=== PATIENT | male | born 1955 | race Caucasian/White ===

== ENCOUNTER 2021-07-27 12:26 | Inpatient (IN) | payer OTHER, MEDICARE, SELFPAY ==
[~2021-07-27] VITALS: Ht 177.8 cm; Wt 69.9 kg
[2021-07-27 12:26] VITALS: BP_SYST 169
[~2021-07-27 12:26] MED LIST: ACET-2634 PO; ALPR0.5T PO; BUSP5TAB3 PO; CEL20 PO; CITA10TA17 PO; DIPH25TA62 PO; DOXA2TAB PO; IPRA3AMP9 INH; LACT1TAB14 PO; LACT30003 GT; LEVO250T58 PO; LORA10CA PO; MELA3CAP PO; MULT-1117 PO; POLY17PO4 PO; RILU50TA13 PO; SENN8.6T19 PO; VITD2000 PO
--- NOTE | 2021-07-27 12:26 | NUR ---
Placed in room 2 . Placed on ldr nurse, blood pressure machine and pulse oximeter. To gown for exam. Side rails up.
--- NOTE | 2021-07-27 12:30 | NUR ---
Pt bib EMS from home with c/o bleeding from penis, s/p home health catheter insertion. Pt has trach in place, respiratory at bedside to set up the vent. O2 sat 97% on 50% O2. Other v/s stable
--- NOTE | 2021-07-27 13:50 | NUR ---
Pt had large BM, pericare and complete linen change completed. Pt tolerated well.
--- NOTE | 2021-07-27 14:30 | NUR ---
ER Dr. Lopez at bedside examining patient.
--- NOTE | 2021-07-27 15:09 | NUR ---
# 16 FR Mejia catheter with use of sterile technique. Immediate return of 25 cc pale yellow urine with scant blood clots noted. Bedside drainage bag placed below level of bladder. Urine sample collected and sent to lab. Pt tolerated procedure well.
[2021-07-27 15:11] LABS: BASOPHILS # (AUTO) 0.1 K/uL (0.0-0.2); BASOPHILS % (AUTO) 0.9 % (0.0-2.0); EOSINOPHILS # (AUTO) 0.2 K/uL (0.0-0.4); EOSINOPHILS % (AUTO) 1.2 % (0.0-4.0); HEMATOCRIT 33.6 % (36-54); HEMOGLOBIN 11.2 g/dL (14.0-18.0); LYMPHOCYTES # (AUTO) 0.9 K/uL (1.0-5.5); LYMPHOCYTES % (AUTO) 6.3 % (20.5-51.5); MEAN CORPUSCULAR HEMOGLOBIN 30 pg (27-31); MEAN CORPUSCULAR HGB CONC 33 % (32-36); MEAN CORPUSCULAR VOLUME 91 fL (79.0-98.0); MONOCYTES % (AUTO) 6.9 % (1.7-9.3); NEUTROPHILS # (AUTO) 11.7 K/uL (1.8-7.7); NEUTROPHILS % (AUTO) 84.7 % (40.0-70.0); PLATELET COUNT (AUTO) 267 K/uL (130-430); RED BLOOD CELL COUNT(AUTO) 3.71 MIL/uL (4.2-6.2); RED CELL DISTRIBUTION WIDTH 15.6 % (9.0-15.0); WHITE BLOOD COUNT (AUTO) 13.9 K/uL (4.8-10.8)
[2021-07-27 15:33] LABS: CALCIUM 9.7 mg/dL (8.4-11.0); CREATININE 0.84 mg/dL (0.55-1.30); POTASSIUM 4.6 mmol/L (3.5-5.1)
[2021-07-27 15:45] LABS: ALBUMIN 3.1 g/dL (3.4-4.8); TOTAL BILIRUBIN 0.5 mg/dL (0.0-1.0)
[2021-07-27 15:55] LABS: BILIRUBIN,URINE NEGATIVE (NEGATIVE); BLOOD, URINE 3+ (NEGATIVE); CLARITY/URINE CLEAR (CLEAR); COLOR,URINE YELLOW (YELLOW); GLUCOSE,URINE NEGATIVE (NEGATIVE); KETONES,URINE NEGATIVE (NEGATIVE); LEUKOCYTE ESTERASE ,URINE NEGATIVE (NEGATIVE); NITRITE, URINE NEGATIVE (NEGATIVE); PROTEIN URINE NEGATIVE (NEGATIVE); UROBILINOGEN,URINE 0.2 (0.2-1.0)
--- NOTE | 2021-07-27 16:00 | NUR ---
D/C orders received, pt will be going back home. Ambulance transportation set up, ETA 20:30. [facility] is at home and will be there to accept patient.
[2021-07-27 16:14] LABS: BACTERIA,URINE FEW /HPF (None Seen); CALCIUM OXALATE CRYSTALS,UR None Seen /HPF (None Seen); CALCIUM PHOSPHATE CRYSTALS,UR None Seen /HPF (None Seen); COARSE GRANULAR CASTS,URINE None Seen /LPF (None Seen); FINE GRANULAR CASTS,URINE None Seen /LPF (None Seen); HYALINE CASTS, URINE None Seen /LPF (None Seen); MUCUS,URINE None Seen /LPF (None Seen); OTHER CASTS, URINE None Seen /LPF (None Seen); OTHER CRYSTALS,URINE None Seen /HPF (None Seen); RBC,URINE 20-50 /HPF (0-3); TRICHOMONAS,URINE None Seen /HPF (None Seen); TRIPLE PHOSPHATE CRYSTAL,UR None Seen /HPF (None Seen); URIC ACID CRYSTALS,URINE None Seen /HPF (None Seen); URINE AMORPHOUS PHOSPHATES None Seen /HPF (None Seen); URINE AMORPHOUS URATE None Seen /HPF (None Seen); WAXY CASTS,URINE None Seen /LPF (None Seen); WBC,URINE 0-3 /HPF (0-3); YEAST,URINE None Seen /HPF (None Seen)
[2021-07-27 16:34] LABS: PROTHROMBIN TIME 10.9 SECS (9.5-12.5)
--- NOTE | 2021-07-27 17:30 | NUR ---
Pt repositioned to right side, HOB elevated above 30 degrees, pillows placed between legs and behind back.
--- NOTE | 2021-07-27 19:14 | NUR ---
Care of patient endorsed to RAFAELA James. Pt currently resting in bed, awaiting transport home.
--- NOTE | 2021-07-27 21:45 | NUR ---
Pt desated to 89%, Resp called, keyana changed to a hosp bed. Pt called, pt is DNR, paper are here at hospital in med rec. MD at bedside, pending re-assessment.
[2021-07-27] MEDS ORDERED: LORazepam 2 MG/ML VIAL IVP ONE (22:00)
--- NOTE | 2021-07-27 22:02 | NUR ---
PORTABLE XRAY DONE AT BEDSIDE.
--- NOTE | 2021-07-27 22:10 | NUR ---
PT CHANGED FROM GURNEY TO HOSP BED. TOLERATED WELL, AT PRESENT NO RESP DISTRESS NOTED, PT AND REQUESTING ATIVAN OR XANAX, HE FEELS AGITATED. AT BEDSIDE.
[2021-07-27 22:22] LABS: BASOPHILS # (AUTO) 0.1 K/uL (0.0-0.2); BASOPHILS % (AUTO) 0.7 % (0.0-2.0); EOSINOPHILS # (AUTO) 0.2 K/uL (0.0-0.4); EOSINOPHILS % (AUTO) 1.5 % (0.0-4.0); HEMATOCRIT 33.8 % (36-54); HEMOGLOBIN 11.2 g/dL (14.0-18.0); LYMPHOCYTES # (AUTO) 0.9 K/uL (1.0-5.5); LYMPHOCYTES % (AUTO) 5.9 % (20.5-51.5); MEAN CORPUSCULAR HEMOGLOBIN 30 pg (27-31); MEAN CORPUSCULAR HGB CONC 33 % (32-36); MEAN CORPUSCULAR VOLUME 91 fL (79.0-98.0); MONOCYTES # (AUTO) 1.2 K/uL (0.0-1.0); MONOCYTES % (AUTO) 7.8 % (1.7-9.3); NEUTROPHILS # (AUTO) 13.2 K/uL (1.8-7.7); NEUTROPHILS % (AUTO) 84.1 % (40.0-70.0); PLATELET COUNT (AUTO) 283 K/uL (130-430); RED BLOOD CELL COUNT(AUTO) 3.73 MIL/uL (4.2-6.2); RED CELL DISTRIBUTION WIDTH 15.7 % (9.0-15.0); WHITE BLOOD COUNT (AUTO) 15.7 K/uL (4.8-10.8)
[2021-07-27 22:45] LABS: CALCIUM 10.2 mg/dL (8.4-11.0); CREATININE 0.76 mg/dL (0.55-1.30); POTASSIUM 4.1 mmol/L (3.5-5.1)
[2021-07-27 22:51] LABS: ALBUMIN 3.2 g/dL (3.4-4.8); TOTAL BILIRUBIN 0.7 mg/dL (0.0-1.0)
[2021-07-27] MEDS ORDERED: PIPERACILLIN/TAZO 3.375 GM in NS 50 ML IV ONE (23:45)
[2021-07-28] MEDS: D5/0.45 NS 1,000 ML IV SCH ×2 (00:15→20:10)
--- NOTE | 2021-07-28 00:25 | NUR ---
RECEIVED ADMIT ORDERS. JEFRY A BED FROM [facility].
[2021-07-28] MEDS ORDERED: PIPERACILLIN/TAZOBACTAM 3.375 GM/VIAL (ZOSYN) IV ONE (00:43)
[2021-07-28] MEDS ORDERED: ACETAMINOPHEN 650 MG/20.3 ML UDC ONE (02:26)
--- NOTE | 2021-07-28 03:15 | NUR ---
Patient will be admitted to care of Phillip RUSSO. Admitted to Tele unit. Will go to room 107A on Vent settings, transported by nurse and Resp therapists x2 for safety. Belongings list completed. Complete and up to date summary report printed. SBAR report to be given at bedside with opportunity for questions. Pt on trache to Vent at 45% O2. Urine output 1,200 ml. tylenol 650mg given PO for h/a 10. took pt's belongings and Home vent (bi-Pap) from ED (personal belongings bag given. VS WNL- T 98.0, p 88, RR 32, BP 102/66 PO2 96%. No Resp distress noted.
--- NOTE | 2021-07-28 03:20 | NUR ---
ADMISSION NOTE Received patient from ER via hospital bed. Patient admitted with diagnosis of Venilator Assisted Pneumonia. Patient is awake, alert, oriented X 3. Patient oriented to hospital room, call light, toileting, pain management and safety-teach back done. Patient informed that senior copywriter will be primary nurse and that their room number is 107A. Accompanied by . Call light within reach.
[2021-07-28] MEDS ORDERED: ACETAMINOPHEN 650 MG/20.3 ML UDC PO PRN (03:45)
[2021-07-28 03:59] VITALS: BP_SYST 113
--- NOTE | 2021-07-28 04:01 | NUR ---
The SARS Antigen AIMEE does not differentiate between SARS-CoV and SARS-CoV-2- results are negative.
[2021-07-28] MEDS: IPRATROPIUM/ALBUTEROL SULFATE 3 ML AMPUL.NEB (DUONEB) INH SCH ×3 (07:18→20:08)
--- NOTE | 2021-07-28 07:26 | NUR ---
Closing note Resting quietly, easily aroused. Remains on mechanical ventilator tolerating settings well. No c/o pain or discomfort. Mejia catheter draining clear yellow urine. All needs attended to.
[2021-07-28 08:32] VITALS: BP_SYST 121
[2021-07-28] MEDS ORDERED: RILU50TA13 PO (09:59)
--- NOTE | 2021-07-28 09:59 | NUR ---
Nutrition Update Eduardo Scale 13 noted. Pt admitted for ventilator-associated pneumonia. Diet: N/A BMI: 21 kg/m2 RD to follow per nutrition care standards.
[2021-07-28] MEDS ORDERED: CEL20 PO (10:04)
[2021-07-28] MEDS ORDERED: busPIRone HCL 5 MG TABLET PO ONE (10:15)
[2021-07-28] MEDS ORDERED: CHOLECALCIFEROL (VITAMIN D3) 2,000 UNIT TABLET PO ONE (10:15)
[2021-07-28] MEDS ORDERED: IPRATROPIUM/ALBUTEROL SULFATE 3 ML AMPUL.NEB (DUONEB) INH SCH (10:15)
[2021-07-28] MEDS ORDERED: CITALOPRAM HYDROBROMIDE 20 MG TABLET PO ONE (10:15)
[2021-07-28 10:21] VITALS: BP_SYST 121
[2021-07-28 11:27] VITALS: BP_SYST 103
--- NOTE | 2021-07-28 12:30 | NUR ---
hygiene pt stable a/ox3. non verbal . on vent tolerating well. pt had bmx1. pt cleaned and repositioned.ivf infusing well. no s/s of infiltartion noted. safety and fall precautions mainatined. hob elevated . g tube bolus feeding given as ordered.no residual noted. fishman cath draining yellow color urine. mild bleeding noted on insertion site. dr evans aware. at bed side. not in acute distress. oral and tracheal suctione done. not in res distress. will conintue to monitor
[2021-07-28] MEDS: PIPERACILLIN/TAZO 3.375/DEX-IS 50 ML IV SCH ×2 (13:00→17:15)
[2021-07-28] MEDS: AZITHROMYCIN 500 MG in NS 250 ML IV SCH (14:30)
[2021-07-28] MEDS: busPIRone HCL 5 MG TABLET PO SCH ×2 (14:30→22:02)
[2021-07-28 15:34] VITALS: BP_SYST 130
--- NOTE | 2021-07-28 18:48 | NUR ---
closing notes pt stable a/ox3. non verbal . on vent tolerating well..ivf infusing well. no s/s of infiltartion noted. safety and fall precautions mainatined. hob elevated . g tube bolus feeding given as ordered.no residual noted. fishman cath draining yellow color urine. at bed side. pt continue on vent. tolerating well.not in acute distress. oral and tracheal suction done. not in res distress. needs attended throughout the shift.
[2021-07-28 20:00] VITALS: BP_SYST 101
[2021-07-28] MEDS: ACETAMINOPHEN 500 MG TABLET PO PRN (20:10)
[2021-07-28] MEDS: ALPRAZolam 0.25 MG TABLET PO SCH (20:11)
[2021-07-28] MEDS: DOXAZOSIN MESYLATE 2 MG TABLET PO SCH (21:00)
[2021-07-28] MEDS: SENNOSIDES 8.6 MG TABLET PO SCH (21:00)
[2021-07-28] MEDS ORDERED: RILUZOLE 50MG TABLET PO SCH (21:00)
[2021-07-28] MEDS: DIPHENHYDRAMINE HCL 25 MG CAPSULE PO SCH (22:02)
[2021-07-29] MEDS: PIPERACILLIN/TAZO 3.375/DEX-IS 50 ML IV SCH ×4 (00:52→16:38)
[2021-07-29 02:06] VITALS: BP_SYST 108
[2021-07-29] MEDS: D5/0.45 NS 1,000 ML IV SCH ×2 (04:51→20:58)
[2021-07-29 06:41] LABS: ALBUMIN 2.7 g/dL (3.4-4.8); CALCIUM 9.6 mg/dL (8.4-11.0); CREATININE 0.67 mg/dL (0.55-1.30); POTASSIUM 4.1 mmol/L (3.5-5.1); TOTAL BILIRUBIN 0.4 mg/dL (0.0-1.0)
[2021-07-29] MEDS: IPRATROPIUM/ALBUTEROL SULFATE 3 ML AMPUL.NEB (DUONEB) INH SCH ×2 (07:45→19:30)
[2021-07-29 07:57] LABS: BASOPHILS # (AUTO) 0.1 K/uL (0.0-0.2); BASOPHILS % (AUTO) 0.8 % (0.0-2.0); EOSINOPHILS # (AUTO) 0.4 K/uL (0.0-0.4); EOSINOPHILS % (AUTO) 3.4 % (0.0-4.0); HEMATOCRIT 28.9 % (36-54); HEMOGLOBIN 9.3 g/dL (14.0-18.0); LYMPHOCYTES # (AUTO) 0.8 K/uL (1.0-5.5); LYMPHOCYTES % (AUTO) 6.4 % (20.5-51.5); MEAN CORPUSCULAR HEMOGLOBIN 30 pg (27-31); MEAN CORPUSCULAR HGB CONC 32 % (32-36); MEAN CORPUSCULAR VOLUME 92 fL (79.0-98.0); MONOCYTES # (AUTO) 1.4 K/uL (0.0-1.0); MONOCYTES % (AUTO) 11.3 % (1.7-9.3); NEUTROPHILS # (AUTO) 9.4 K/uL (1.8-7.7); NEUTROPHILS % (AUTO) 78.1 % (40.0-70.0); PLATELET COUNT (AUTO) 234 K/uL (130-430); RED BLOOD CELL COUNT(AUTO) 3.13 MIL/uL (4.2-6.2); RED CELL DISTRIBUTION WIDTH 15.7 % (9.0-15.0); WHITE BLOOD COUNT (AUTO) 12.1 K/uL (4.8-10.8)
--- NOTE | 2021-07-29 08:00 | NUR ---
A/OX4. ON TRACH VENT. WITH GOOD SATURATION. G TUBE CLAMPED. DRESSING CLEAN AND DRY. MINIMAL RESIDUAL NOTED. CONTRACT UPPER AND LOWER EXTREMITIES NOTED. MAZARIEGOS IN PLACE,CLEAR YELLOW.CALL LIGHT= IN PLACE, BED LOCKED AT LOWEST POSITION. WILL CONTINUE TO MONITOR.
[2021-07-29] MEDS: MULTIVITAMINS TAB 1 TABLET PO SCH (08:07)
[2021-07-29] MEDS: LORATADINE 10 MG TABLET PO SCH (08:07)
[2021-07-29] MEDS: CITALOPRAM HYDROBROMIDE 20 MG TABLET PO SCH (08:07)
[2021-07-29] MEDS: CHOLECALCIFEROL (VITAMIN D3) 2,000 UNIT TABLET PO SCH (08:07)
[2021-07-29] MEDS: busPIRone HCL 5 MG TABLET PO SCH ×3 (08:07→20:58)
[2021-07-29] MEDS: DOXAZOSIN MESYLATE 2 MG TABLET PO SCH ×3 (08:18→21:11)
[2021-07-29] MEDS: POLYETHYLENE GLYCOL 3350, 17 GM/ POWD.PACK PO SCH (08:19)
[2021-07-29] MEDS: SENNOSIDES 8.6 MG TABLET PO SCH ×2 (08:19→20:53)
[2021-07-29] MEDS: ALPRAZolam 0.25 MG TABLET PO PRN (10:11)
[2021-07-29 11:29] VITALS: BP_SYST 112
[2021-07-29] MEDS: AZITHROMYCIN 500 MG in NS 250 ML IV SCH (13:18)
--- NOTE | 2021-07-29 14:24 | NUR ---
WOUND EVALUATION: Wound Consult received from Dr. Rice. Thank you, Dr. Rice, for the consult. Patient received in a [facility] bed with an Isoflex NATAN mattress, awake, alert, and oriented. Patient is unable to turn in bed with. Eduardo Score is a 12. Past Medical History: Chronic Respiratory Failure, G-tube feeding, chronic constipation, ALS, CPAP/BiPAP use at home. Recent Labs: WBC 12.1, RBC 3.13, hemoglobin 9.3, hematocrit 28.9, BUN 27, creatinine 0.67, GFR 126, glucose 116, albumin 2.7, PTT 24.7, D-dimer 1470. Microbiology: Blood culture results x2 in progress. Endotracheal sputum culture results in progress. Intrinsic factors that delay wound healing: Chronic Respiratory Failure, ALS, Hypoalbuminemia. Extrinsic factors that delay wound healing: Decreased mobility. Wound Assessment: 1. Left Buttock: Stage II pressure ulcer, present on admission. Site has IAD with MASD and erythema. Brown scab present superior to wound, black scab present inferior to wound. Surrounding tissue has dry flaky skin. Site measures 3.3 cm x 3.0 cm. 2. Right Buttock: IAD with MASD. Site has erythema with multiple small open areas with red tissue. Surrounding tissue has dry flaky skin. Recommend: Cleanse involved areas with mild soap and water. Pat dry. Apply Hydraguard barrier cream to involved areas. Apply hydrogel to open area and wound 1. Cover with Sacral foam dressing. Perform site care twice daily, and as needed for dressing soiling or dislodgment. 3. Intergluteal Cleft: Scar tissue, present on admission. No odor, no drainage. Recommend: Cleanse site with normal saline. Apply moisture barrier cream to site. Cover with same Sacral foam dressing used for sites 1 and 2. Perform wound care daily, and as needed for dressing soiling or dislodgement. 4. Left Heel: Blanchable redness. 5. Right Heel: Blanchable redness. Recommend: Elevate, offload and float bilateral heels with one pillow lengthwise under each extremity at all times. Also recommend: Encourage and assist patient with repositioning side to side only every 2 hours with pillow support and off-load pressure areas with pillows for pressure re-distribution. Offload, elevate and float bilateral heels with one pillow lengthwise under each extremity at all times. Perform skin care and monitor skin integrity Q shift. Use moisture barrier cream on buttocks and other moisture susceptible areas QID and as needed for soiling. Initiate low air-loss therapy.
--- NOTE | 2021-07-29 14:30 | NUR ---
DR. RICE IS AT BEDSIDE ASSESSING PATIENT. PROCEDURE IS PERFORMED TO ADJUST TRACHEOSTOMY. PATIENT TOLERATED WITHOUT DISTRESS.
--- NOTE | 2021-07-29 14:38 | NUR ---
CONSULTATION: REASON FOR CONSULT: TRACHEOSTOMY CONSULTING PHYSICIAN: ELADIA RICE ORDERED BY: VERENICE RICE IS ALREADY AWARE AND SEEN THE PATIENT
[2021-07-29 15:41] VITALS: BP_SYST 98
[2021-07-29] MEDS ORDERED: VANCOMYCIN HCL 1 GM/NS PREMIX 250 ML IV ONE ×2 (19:00→21:00)
[2021-07-29 19:30] VITALS: BP_SYST 102
--- NOTE | 2021-07-29 19:40 | NUR ---
Pt report received. Pt AAOx4, Trach to Vent with settings: A/C, 18, 500, 40%, 5. Contractures noted to BUE. PICC to NUBIA secure with D5 1/2 NS at 50 mL/hr. G-tube patent with no residual noted. Dsg clean, dry, and intact to site. F/C draining yellow urine. HOB elevated,bed in lowest position, call light in reach, SR up x 2. Pt's at bedside.
[2021-07-29] MEDS: ALPRAZolam 0.25 MG TABLET PO SCH (20:53)
[2021-07-29] MEDS: DIPHENHYDRAMINE HCL 25 MG CAPSULE PO SCH (20:53)
[2021-07-29] MEDS: ACETAMINOPHEN 500 MG TABLET PO PRN (20:57)
[2021-07-29 21:20] VITALS: BP_SYST 106
[2021-07-29 23:40] VITALS: BP_SYST 92
[2021-07-30] VITALS (10 sets, daily range): BP systolic 92–125
[2021-07-30] MEDS: PIPERACILLIN/TAZO 3.375/DEX-IS 50 ML IV SCH ×4 (00:06→17:14)
[2021-07-30] MEDS ORDERED: VANCOMYCIN HCL 1000 MG/VIAL IV ONE (01:03)
[2021-07-30] MEDS: IPRATROPIUM/ALBUTEROL SULFATE 3 ML AMPUL.NEB (DUONEB) INH SCH ×4 (01:35→19:53)
--- NOTE | 2021-07-30 02:15 | NUR ---
Pt had a large brown and watery BM. Pt cleaned, clean gown and linens applied. Pt tolerated well and placed in position of comfort. VSS, NAD.
--- NOTE | 2021-07-30 06:00 | NUR ---
Pt's states that she feeds pt q 2 hours via GT per gravity with 250 mL of Nutren 1.5.
--- NOTE | 2021-07-30 07:30 | NUR ---
Pt report given to oncoming RN. Pt AAOx4, No changes to vent settings. D5 1/2 NS continues to infuse at 50 mL/hr to NUBIA PICC. G-F/C draining yellow urine. HOB elevated,bed in lowest position, call light in reach, SR up x 2. Pt's at bedside.
[2021-07-30 07:40] LABS: BASOPHILS # (AUTO) 0.1 K/uL (0.0-0.2); BASOPHILS % (AUTO) 0.7 % (0.0-2.0); EOSINOPHILS # (AUTO) 0.4 K/uL (0.0-0.4); EOSINOPHILS % (AUTO) 3.4 % (0.0-4.0); HEMATOCRIT 29.5 % (36-54); HEMOGLOBIN 9.8 g/dL (14.0-18.0); LYMPHOCYTES # (AUTO) 0.8 K/uL (1.0-5.5); LYMPHOCYTES % (AUTO) 6.8 % (20.5-51.5); MEAN CORPUSCULAR HEMOGLOBIN 30 pg (27-31); MEAN CORPUSCULAR HGB CONC 33 % (32-36); MEAN CORPUSCULAR VOLUME 92 fL (79.0-98.0); MONOCYTES # (AUTO) 1.1 K/uL (0.0-1.0); MONOCYTES % (AUTO) 9.2 % (1.7-9.3); NEUTROPHILS # (AUTO) 9.3 K/uL (1.8-7.7); NEUTROPHILS % (AUTO) 79.9 % (40.0-70.0); PLATELET COUNT (AUTO) 220 K/uL (130-430); RED BLOOD CELL COUNT(AUTO) 3.21 MIL/uL (4.2-6.2); RED CELL DISTRIBUTION WIDTH 15.4 % (9.0-15.0); WHITE BLOOD COUNT (AUTO) 11.6 K/uL (4.8-10.8)
[2021-07-30 08:59] LABS: CALCIUM 9.7 mg/dL (8.4-11.0); CREATININE 0.67 mg/dL (0.55-1.30); POTASSIUM 3.7 mmol/L (3.5-5.1)
[2021-07-30] MEDS: LORATADINE 10 MG TABLET PO SCH (10:11)
[2021-07-30] MEDS: CHOLECALCIFEROL (VITAMIN D3) 2,000 UNIT TABLET PO SCH (10:11)
[2021-07-30] MEDS: busPIRone HCL 5 MG TABLET PO SCH ×3 (10:12→20:21)
[2021-07-30] MEDS: CITALOPRAM HYDROBROMIDE 20 MG TABLET PO SCH (10:12)
[2021-07-30] MEDS: MULTIVITAMINS TAB 1 TABLET PO SCH (10:12)
[2021-07-30] MEDS: SENNOSIDES 8.6 MG TABLET PO SCH ×2 (10:12→20:21)
[2021-07-30] MEDS: POLYETHYLENE GLYCOL 3350, 17 GM/ POWD.PACK PO SCH (10:12)
[2021-07-30] MEDS: VANCOMYCIN HCL 1 GM/NS PREMIX 250 ML IV SCH ×2 (10:19→17:13)
[2021-07-30] MEDS: DOXAZOSIN MESYLATE 2 MG TABLET PO SCH ×2 (10:19→20:21)
[2021-07-30] MEDS ORDERED: LOPERAMIDE HCL 2 MG CAPSULE GT ONE (11:30)
--- NOTE | 2021-07-30 13:44 | NUR ---
Pt's family members at bedside. stable condition. NAD
--- NOTE | 2021-07-30 15:05 | NUR ---
Dietitian Recommendations * Recommend continuing Nutren 1.5 bolus feeds 6x/day w/ 60 ml water flush before and after bolus feeds via GT Provides: 2250 kcal/day, 101 gm protein, and 1011 ml free water/day Meets: 92% of upper end of estimated caloric needs and 96% of lower end of estimated protein needs * Consider addition of Hood BID and Prosource daily to home TF regimen (provides an additional 220 kcal/day, 20 gm protein/day) LP, RD Please refer to Nutrition Assessment for details. Addendum: 07/30/21 at [address] Amended: Links added.
--- NOTE | 2021-07-30 19:15 | NUR ---
Received bedside report for rn. pt in bed resting. rr even and unlabored. pt denies need for suction. family at bedside. Pt denies pain at this time. call light within reach. bed locked in lowest position. bed alarm on. will continue to monitor.
[2021-07-30] MEDS: ALPRAZolam 0.25 MG TABLET PO SCH (20:20)
[2021-07-30] MEDS: DIPHENHYDRAMINE HCL 25 MG CAPSULE PO SCH (20:23)
--- NOTE | 2021-07-30 21:05 | NUR ---
Pt had loose bm. optifoam on coccyx changed. pt denies pain at this time. call light within reach. will continue to monitor
[2021-07-30] MEDS: D5/0.45 NS 1,000 ML IV SCH (22:25)
[2021-07-31] MEDS: PIPERACILLIN/TAZO 3.375/DEX-IS 50 ML IV SCH ×4 (00:55→16:58)
[2021-07-31 01:04] VITALS: BP_SYST 94
--- NOTE | 2021-07-31 02:00 | NUR ---
Pt in bed asleep with eyes closed. rr even and unlabored. iv fluid infusing through kimani picc. call light within reach. bed locked in lowest position. bed alarm on. will continue to monitor.
[2021-07-31] MEDS: VANCOMYCIN HCL 1 GM/NS PREMIX 250 ML IV SCH ×3 (02:45→10:00)
--- NOTE | 2021-07-31 07:22 | NUR ---
endorsed care to oncoming nurse
[2021-07-31 08:00] VITALS: BP_SYST 115
[2021-07-31 08:20] VITALS: BP_SYST 99
[2021-07-31] MEDS: CHOLECALCIFEROL (VITAMIN D3) 2,000 UNIT TABLET PO SCH (08:49)
[2021-07-31] MEDS: DOXAZOSIN MESYLATE 2 MG TABLET PO SCH ×2 (08:49→20:29)
[2021-07-31] MEDS: busPIRone HCL 5 MG TABLET PO SCH ×3 (08:50→20:11)
[2021-07-31] MEDS: CITALOPRAM HYDROBROMIDE 20 MG TABLET PO SCH (08:50)
[2021-07-31] MEDS: POLYETHYLENE GLYCOL 3350, 17 GM/ POWD.PACK PO SCH (08:50)
[2021-07-31] MEDS: SENNOSIDES 8.6 MG TABLET PO SCH (08:50)
[2021-07-31] MEDS: LORATADINE 10 MG TABLET PO SCH (08:50)
[2021-07-31] MEDS: MULTIVITAMINS TAB 1 TABLET PO SCH (08:50)
[2021-07-31] MEDS: IPRATROPIUM/ALBUTEROL SULFATE 3 ML AMPUL.NEB (DUONEB) INH SCH ×4 (08:59→19:57)
--- NOTE | 2021-07-31 10:34 | NUR ---
CONSULT ID SEPSIS DR TOLEDO [phone] S/W SADLER EXCHANGE
--- NOTE | 2021-07-31 10:35 | NUR ---
PAGED PAGED ASHLEY BARDALES AT [phone] SPOKE WITH BROOKS.
--- NOTE | 2021-07-31 10:49 | NUR ---
alert, oriented, appeared comfortable. Per request, patient needs IMMODIUM, given. vanco trough drawn at the time Vanco ready to infused, held it. Vanco trough result now 28, double checked with the farmacist today, VANCO HELD UNTIL DOSAGE READJUSTED. syd disla held , also
[2021-07-31] MEDS ORDERED: LOPERAMIDE HCL 2 MG CAPSULE GT ONE (11:15)
[2021-07-31] MEDS ORDERED: LACTOBACILLUS RHAMNOSUS GG 1 CAP CAPSULE PO ONE (12:00)
[2021-07-31] MEDS: D5/0.45 NS 1,000 ML IV SCH (16:57)
[2021-07-31 18:04] VITALS: BP_SYST 144
[2021-07-31 19:00] VITALS: BP_SYST 118
[2021-07-31] MEDS: DIPHENHYDRAMINE HCL 25 MG CAPSULE PO SCH (20:10)
[2021-07-31] MEDS: ALPRAZolam 0.25 MG TABLET PO SCH (20:10)
[2021-07-31] MEDS: LACTOBACILLUS RHAMNOSUS GG 1 CAP CAPSULE PO SCH (20:11)
[2021-07-31] MEDS: ACETAMINOPHEN 500 MG TABLET PO PRN (20:28)
[2021-08-01 00:05] VITALS: BP_SYST 94
[2021-08-01] MEDS: PIPERACILLIN/TAZO 3.375/DEX-IS 50 ML IV SCH ×2 (00:08→06:22)
[2021-08-01] MEDS: IPRATROPIUM/ALBUTEROL SULFATE 3 ML AMPUL.NEB (DUONEB) INH SCH ×5 (03:27→19:57)
[2021-08-01 08:00] VITALS: BP_SYST 112
[2021-08-01] MEDS: busPIRone HCL 5 MG TABLET PO SCH ×3 (09:00→21:19)
[2021-08-01] MEDS: LACTOBACILLUS RHAMNOSUS GG 1 CAP CAPSULE PO SCH ×2 (09:01→21:19)
[2021-08-01] MEDS: CHOLECALCIFEROL (VITAMIN D3) 2,000 UNIT TABLET PO SCH (09:01)
[2021-08-01] MEDS: MULTIVITAMINS TAB 1 TABLET PO SCH (09:01)
[2021-08-01] MEDS: CITALOPRAM HYDROBROMIDE 20 MG TABLET PO SCH (09:02)
[2021-08-01] MEDS: DOXAZOSIN MESYLATE 2 MG TABLET PO SCH ×2 (09:02→21:00)
[2021-08-01] MEDS: LORATADINE 10 MG TABLET PO SCH (09:03)
[2021-08-01 11:16] LABS: BASOPHILS # (AUTO) 0.1 K/uL (0.0-0.2); EOSINOPHILS # (AUTO) 0.4 K/uL (0.0-0.4); EOSINOPHILS % (AUTO) 3.7 % (0.0-4.0); HEMOGLOBIN 9.6 g/dL (14.0-18.0); LYMPHOCYTES # (AUTO) 0.6 K/uL (1.0-5.5); LYMPHOCYTES % (AUTO) 5.6 % (20.5-51.5); MEAN CORPUSCULAR HEMOGLOBIN 30 pg (27-31); MEAN CORPUSCULAR HGB CONC 33 % (32-36); MEAN CORPUSCULAR VOLUME 91 fL (79.0-98.0); MONOCYTES # (AUTO) 0.7 K/uL (0.0-1.0); MONOCYTES % (AUTO) 6.4 % (1.7-9.3); NEUTROPHILS # (AUTO) 9.4 K/uL (1.8-7.7); NEUTROPHILS % (AUTO) 83.3 % (40.0-70.0); PLATELET COUNT (AUTO) 210 K/uL (130-430); RED BLOOD CELL COUNT(AUTO) 3.19 MIL/uL (4.2-6.2); RED CELL DISTRIBUTION WIDTH 15.6 % (9.0-15.0); WHITE BLOOD COUNT (AUTO) 11.3 K/uL (4.8-10.8)
[2021-08-01 11:30] LABS: CALCIUM 9.8 mg/dL (8.4-11.0); CREATININE 0.71 mg/dL (0.55-1.30); POTASSIUM 3.8 mmol/L (3.5-5.1)
[2021-08-01] MEDS: MENTHOL/ZINC OXIDE 113 GM OINT. TP SCH ×2 (11:30→21:20)
[2021-08-01 11:36] VITALS: BP_SYST 109
[2021-08-01] MEDS: VANCOMYCIN HCL 1,000 MG in NS 250 ML IV SCH (11:48)
[2021-08-01] MEDS: D5/0.45 NS 1,000 ML IV SCH (12:51)
[2021-08-01] MEDS: CEFTAZIDIME 1 GM in D5W 50 ML IV SCH ×2 (15:00→21:22)
[2021-08-01 15:33] VITALS: BP_SYST 119
[2021-08-01 19:00] VITALS: BP_SYST 107
--- NOTE | 2021-08-01 19:15 | NUR ---
change of shift.pt.present isolation status;contact.pt.presents trach ventilator:settings;tv;500,fio2%=35%,a/c;22.p:5. @bedside.pt.presents g-tube clamped.pt.receives the administration bolus feed.no pain,nausea.pt.presents iv access location rt.wrist.iv fluids infusing.picc line d/c;tip sent to lab:cx.call light touch pad w/in access of the pt.lt,hand.touch pad tested functioning.
[2021-08-01 20:00] VITALS: BP_SYST 107
--- NOTE | 2021-08-01 20:00 | NUR ---
pt.assessed.v/s assessed values wnl.o2-sat%=98%.no c/o pain,nausea.iv access intact iv fluids infusing.fishman cath intact urine content present.pt.assessed for cleanliness pt.repositioned.call light touch pad placed w/in access of the pt.touch pad tested functioning.
[2021-08-01] MEDS ORDERED: CEFTAZIDIME 2 GM in D5W 100 ML IV SCH (21:00)
--- NOTE | 2021-08-01 21:00 | NUR ---
2100p medications administered via g-tube.g-tube intact flushed w/out resistance.pt.had requested pain medication;pain. tylenol ex-tra strength administered w 2100p medications.
[2021-08-01] MEDS: ALPRAZolam 0.25 MG TABLET PO SCH (21:19)
[2021-08-01] MEDS: DIPHENHYDRAMINE HCL 25 MG CAPSULE PO SCH (21:19)
[2021-08-01] MEDS: ACETAMINOPHEN 500 MG TABLET PO PRN (21:21)
[2021-08-01] MEDS: LOPERAMIDE HCL 2 MG CAPSULE GT PRN (21:28)
--- NOTE | 2021-08-01 22:00 | NUR ---
pt.assessed.o2-sat%=98%.pt.presents quiescent affect;calm,somnolent.per flacc pain mgx pt.absent facial grimaces/body posturing.pt assessed for cleanliness.pt.repositioned.iv access intact iv fluids infusing.fishman cath intact urine content present. call lighttouch pad w/in access of the pt.tested functioning.
--- NOTE | 2021-08-02 | NUR ---
pt.assessed.v/s assessed values wnl no c/o pain,nausea.iv access intact iv fluids infusing.i have administered vancomycin midnight dose.fishman cath intact urine content present.pt.assessed for cleanliness.pt.repositioned.no c/o pain,nausea.call light touch pad placed w/in access of the pt.touch pad tested functioning.
[2021-08-02 00:27] VITALS: BP_SYST 99
[2021-08-02] MEDS: VANCOMYCIN HCL 1,000 MG in NS 250 ML IV SCH ×3 (00:37→23:45)
--- NOTE | 2021-08-02 02:00 | NUR ---
pt.assessed.o2-sat%=98%.iv access intact iv fluids infusing.fishman cath intact urine content present.pt.assessed for cleanliness.pt.repositioned.patrick light;touch pad placed w/in access of the pt.lt.hand.touch pad tested functioning.
--- NOTE | 2021-08-02 04:00 | NUR ---
pt.assessed.pt.presents quiescent affect;calm,somnolent.iv access intact iv fluids infusing.g-tube intact;clamped.fishman cath intact urine content present.02-sat%=98%.call light touch pad w/in access of the pt.lt.hand tested functioning.
[2021-08-02] MEDS: CEFTAZIDIME 1 GM in D5W 50 ML IV SCH ×3 (05:09→21:10)
--- NOTE | 2021-08-02 06:22 | NUR ---
pt.assessed.v/s wnl. no c/o pain,nausea pt.repositioned.iv access intact iv fluids infusing.i have administered fortaz abx ivpb 0600a dose.fishman cath intact urine content present.call light;touch pad w/in access of the pt.lt.hand tested functioning.
[2021-08-02 07:06] LABS: BASOPHILS # (AUTO) 0.1 K/uL (0.0-0.2); EOSINOPHILS # (AUTO) 0.5 K/uL (0.0-0.4); EOSINOPHILS % (AUTO) 4.9 % (0.0-4.0); HEMATOCRIT 28.9 % (36-54); HEMOGLOBIN 9.5 g/dL (14.0-18.0); LYMPHOCYTES # (AUTO) 0.6 K/uL (1.0-5.5); LYMPHOCYTES % (AUTO) 6.2 % (20.5-51.5); MEAN CORPUSCULAR HEMOGLOBIN 30 pg (27-31); MEAN CORPUSCULAR HGB CONC 33 % (32-36); MEAN CORPUSCULAR VOLUME 92 fL (79.0-98.0); MONOCYTES # (AUTO) 0.9 K/uL (0.0-1.0); MONOCYTES % (AUTO) 8.8 % (1.7-9.3); NEUTROPHILS % (AUTO) 79.1 % (40.0-70.0); PLATELET COUNT (AUTO) 207 K/uL (130-430); RED BLOOD CELL COUNT(AUTO) 3.14 MIL/uL (4.2-6.2); RED CELL DISTRIBUTION WIDTH 15.6 % (9.0-15.0)
[2021-08-02 07:25] LABS: CALCIUM 10.2 mg/dL (8.4-11.0); CREATININE 0.76 mg/dL (0.55-1.30)
[2021-08-02] MEDS: IPRATROPIUM/ALBUTEROL SULFATE 3 ML AMPUL.NEB (DUONEB) INH SCH ×4 (07:48→19:54)
[2021-08-02 08:00] VITALS: BP_SYST 115
--- NOTE | 2021-08-02 08:00 | NUR ---
Initial Note Patient lying in bed, awake and alert. at bedside. Patient has tracheostomy attached to mechanical ventilator, nonverbal but able to communicate via hand signals and yes/no questions by nodding and shaking head. No pain or distress at this time. Mejia catheter intact and patent draining to gravity. G-tube in place, residual 50 cc. Bed locked in lowest position with alarm on. Call light within reach on left side.
[2021-08-02] MEDS: D5/0.45 NS 1,000 ML IV SCH ×2 (08:51→20:53)
[2021-08-02] MEDS: DOXAZOSIN MESYLATE 2 MG TABLET PO SCH ×2 (09:45→20:41)
[2021-08-02] MEDS: busPIRone HCL 5 MG TABLET PO SCH ×3 (09:45→20:40)
[2021-08-02] MEDS: LACTOBACILLUS RHAMNOSUS GG 1 CAP CAPSULE PO SCH ×2 (09:45→20:40)
[2021-08-02] MEDS: MULTIVITAMINS TAB 1 TABLET PO SCH (09:45)
[2021-08-02] MEDS: CHOLECALCIFEROL (VITAMIN D3) 2,000 UNIT TABLET PO SCH (09:45)
[2021-08-02] MEDS: LORATADINE 10 MG TABLET PO SCH (09:46)
[2021-08-02] MEDS: CITALOPRAM HYDROBROMIDE 20 MG TABLET PO SCH (09:46)
[2021-08-02] MEDS: MENTHOL/ZINC OXIDE 113 GM OINT. TP SCH ×2 (09:46→20:41)
[2021-08-02 11:47] VITALS: BP_SYST 107
[2021-08-02] MEDS: ACETAMINOPHEN 500 MG TABLET PO PRN ×2 (11:58→20:53)
--- NOTE | 2021-08-02 12:00 | NUR ---
Notes Patient awake and watching TV. No signs of distress. Administered Tylenol for pain. Repositioned patient for comfort. F/C emptied. Bed in lowest position and call light in reach. Encouraged to call.
[2021-08-02] MEDS: ALPRAZolam 0.25 MG TABLET PO PRN (13:37)
--- NOTE | 2021-08-02 14:30 | NUR ---
MD Rounds Dr. Rice to see patient.
--- NOTE | 2021-08-02 14:54 | NUR ---
WOUND EVALUATION ATTEMPTED: Patient received in a [facility] bed with an Isoflex NATAN mattress, awake, alert, and oriented. Patient is unable to turn in bed independently. Eduardo Score is a 9. Past Medical History: Chronic Respiratory Failure, G-tube feeding, chronic constipation, ALS, CPAP/BiPAP use at home. Microbiology: Blood culture results x2 in progress. Endotracheal sputum culture results positive for Pseudomonas aeruginosa. Endotracheal sputum culture results in progress. Intrinsic factors that delay wound healing: Chronic Respiratory Failure, ALS, Hypoalbuminemia. Extrinsic factors that delay wound healing: Decreased mobility. Wound Assessment: 1. Left Buttock: Stage II pressure ulcer, present on admission. Wound care performed by assistant shift supervisor nurse. Dressings not removed for assessment secondary to do so would decrease wound temperature and retard wound healing rate. Will attempt to perform assessment at another time. 2. Right Buttock: IAD with MASD. Wound care performed by assistant shift supervisor nurse. Dressings not removed for assessment secondary to do so would decrease wound temperature and retard wound healing rate. Will attempt to perform assessment at another time. Recommend continue: Cleanse involved areas with mild soap and water. Pat dry. Apply Hydraguard barrier cream to involved areas. Apply hydrogel to open area and wound 1. Cover with Sacral foam dressing. Perform site care twice daily, and as needed for dressing soiling or dislodgment. 3. Intergluteal Cleft: Scar tissue, present on admission. Wound care performed by assistant shift supervisor nurse. Dressings not removed for assessment secondary to do so would decrease wound temperature and retard wound healing rate. Will attempt to perform assessment at another time. Recommend continue: Cleanse site with normal saline. Apply moisture barrier cream to site. Cover with same Sacral foam dressing used for sites 1 and 2. Perform wound care daily, and as needed for dressing soiling or dislodgement. 4. Left Heel: Blanchable redness. 5. Right Heel: Blanchable redness. Recommend continue: Elevate, offload and float bilateral heels with one pillow lengthwise under each extremity at all times. Also recommend continue: Encourage and assist patient with repositioning side to side only every 2 hours with pillow support and off-load pressure areas with pillows for pressure re-distribution. Offload, elevate and float bilateral heels with one pillow lengthwise under each extremity at all times. Perform skin care and monitor skin integrity Q shift. Use moisture barrier cream on buttocks and other moisture susceptible areas QID and as needed for soiling. Maintain patient on low air-loss therapy.
--- NOTE | 2021-08-02 16:00 | NUR ---
Notes Patient asleep in bed, at bedside. Pain is controlled at this time, no signs of distress. Safety precautions in place, call light in reach.
[2021-08-02 16:55] VITALS: BP_SYST 86
--- NOTE | 2021-08-02 17:46 | NUR ---
Labs Stool specimen collected and taken to lab.
--- NOTE | 2021-08-02 18:47 | NUR ---
Closing Note Patient lying in bed, no complaints of pain or signs of distress. is at bedside. Fluids running at 50 mL/hr. Bed is in lowest position with alarm on. Call light in reach. Encouraged to call. Will endorse to night nurse.
[2021-08-02 19:54] VITALS: BP_SYST 95
[2021-08-02 20:00] VITALS: BP_SYST 129
[2021-08-02] MEDS: DIPHENHYDRAMINE HCL 25 MG CAPSULE PO SCH (20:40)
[2021-08-02] MEDS: LOPERAMIDE HCL 2 MG CAPSULE GT PRN (20:42)
[2021-08-02] MEDS: ALPRAZolam 0.25 MG TABLET PO SCH (20:42)
[2021-08-03] VITALS (12 sets, daily range): BP systolic 92–171
[2021-08-03] MEDS: IPRATROPIUM/ALBUTEROL SULFATE 3 ML AMPUL.NEB (DUONEB) INH SCH ×4 (00:33→19:24)
[2021-08-03] MEDS: CEFTAZIDIME 1 GM in D5W 50 ML IV SCH ×3 (05:32→21:27)
[2021-08-03] MEDS: LOPERAMIDE HCL 2 MG CAPSULE GT PRN ×5 (05:49→23:50)
--- NOTE | 2021-08-03 07:56 | NUR ---
OPENING NOTE Patient is resting in bed nonverbal due to trach, is at bedside, able to communicate for her . no signs or symptoms respiratory distress, tolerating vent settings well. IV is infusing no signs or symptoms of infiltration. Educated patient and his on the plan of care, verbalized understanding. Bed is in lowest positions call light within reach, contact, fall and aspiration precautions are in place. Will continue to monitor.
[2021-08-03] MEDS: CHOLECALCIFEROL (VITAMIN D3) 2,000 UNIT TABLET PO SCH (08:06)
[2021-08-03] MEDS: ALPRAZolam 0.25 MG TABLET PO PRN (08:06)
[2021-08-03] MEDS: LACTOBACILLUS RHAMNOSUS GG 1 CAP CAPSULE PO SCH ×2 (08:06→21:04)
[2021-08-03] MEDS: LORATADINE 10 MG TABLET PO SCH (08:06)
[2021-08-03] MEDS: busPIRone HCL 5 MG TABLET PO SCH ×3 (08:07→21:04)
[2021-08-03] MEDS: DOXAZOSIN MESYLATE 2 MG TABLET PO SCH ×2 (08:07→21:05)
[2021-08-03] MEDS: MULTIVITAMINS TAB 1 TABLET PO SCH (08:07)
[2021-08-03] MEDS: CITALOPRAM HYDROBROMIDE 20 MG TABLET PO SCH (08:07)
[2021-08-03] MEDS: VANCOMYCIN HCL 1,000 MG in NS 250 ML IV SCH ×2 (11:21→23:50)
[2021-08-03] MEDS: MENTHOL/ZINC OXIDE 113 GM OINT. TP SCH ×2 (11:21→21:06)
--- NOTE | 2021-08-03 12:30 | NUR ---
RN note Patient is stable, resting in bed, no complaint of pain or discomfort. Will continue to monitor.
--- NOTE | 2021-08-03 12:52 | NUR ---
Nutrition F/U Admitting Diagnosis: Ventilator-associated pneumonia Medical History Comment: PMH: chronic respiratory failure/intubated 06/13/21, tracheostomy 06/17/21, aspiration pneumonia/pseudomonas w/ small pleural effusion, sepsis and septic shock, ALS w/ QP, R-sided weakness more than L side, GT feeding, chronic constipation, anemia of chronic illness and iron-deficiency, mild protein malnutrition, ileus, hypernatremia, diarrhea 2/2 GT feeding, buttocks PUs stage 2, and anxiety w/ panic attacks per physician notes Pt also found w/ malfunctioning trach tube s/p successful trach change per physician notes SARS-CoV-2 Ag (Rapid) Negative 07/28 Subjective Information: Pt was seen in bed, sleeping, and sister at bedside. Per pt's , pt only had 1 can of Nutren this morning and became anxious, he was provided w/ ativan. Per EMR review, pt is feeling hot, anxious and w/ increased heart rate this morning. Pt c/o diarrhea upon admission and C.diff toxin assay result is pending and noted that PICC line was discontinued and was sent for culture. Pt is on T-bar, BM 08/03 x1, abdomen is soft and nondistended w/ active bowel sounds, GRV: 5ml (08/03 0930). Eduardo scale: 9, pt was seen by technical sales specialist on 08/02: 1. Left Buttock: Stage II pressure ulcer, present on admission. 2. Right Buttock: IAD with MASD. 3. Intergluteal Cleft: Scar tissue, present on admission. 4. Left Heel: Blanchable redness. 5. Right Heel: Blanchable redness. Per RN note, non-pitting bilateral generalized edema. Pt w/ pressure ulcers and Hood is warranted for wound healing. Family is bringing EN formula from home. RD s/w pt's re: Hood for wound healing and agreed. Current Diet Order/Nutrition Support: , Nutren 1.5 at 6 cans/day via GT (EN formula being brought from home by pt's ) Pertinent Medications: VIT D3, miralax, MVI, D5%-1/2NS at 50 ml/hr (204 kcal/day), Celexa, Culturelle, Imodium Pertinent Labs 08/02: Na 144WNL, K 4WNL, BG 104WNL, BUN 26H, Cre 0.76WNL. Height: 5 feet, 10.00 inches Weight: 154 pounds/ 69.329625 kilograms (07/30)-- Stable Body Mass Index: 22.09 kg/m2 [place]/Adjusted Body Weight: 166#/75 kg Estimated Energy Expenditure (kcals/day) 1896-2335 kcal/day (30-35 kcal/kg CBW d/t acute state, wound) Estimated Protein Required (g/day) 105-140 gm/day (1.5-2 gm/kg CBW d/t acute state, wound) Estimated Fluid Required (l/day) 2.1-2.5 L/day (1 ml/kcal/day for maintenance) Problem/Etiology/Signs/Symptoms Increased nutritional needs related to metabolic demands as evidenced by estimated nutritional requirements for acute state and wound healing. (*ongoing) Expected Outcomes/Goals - Monitor EN tolerance and intakes w/ goal of pt meeting at least 80% of estimated nutritional needs, labs trending WNL, normal GI function, and skin integrity/wt maintenance Dietitian Recommendations * Recommend: add Hood BID for wound healing. * Recommend continuing Nutren 1.5 bolus feeds 6x/day w/ 60 ml water flush before and after bolus feeds via GT (brought from home by family) Provides: 2250 kcal/day, 101 gm protein, and 1011 ml free water/day Meets: 92% of upper end of estimated caloric needs and 96% of lower end of estimated protein needs Follow Up High Risk: F/U in 2-3days
--- NOTE | 2021-08-03 12:59 | NUR ---
Dietitian Recommendations * Recommend: add Hood BID for wound healing. * Recommend continuing Nutren 1.5 bolus feeds 6x/day w/ 60 ml water flush before and after bolus feeds via GT (brought from home by family) Provides: 2250 kcal/day, 101 gm protein, and 1011 ml free water/day Meets: 92% of upper end of estimated caloric needs and 96% of lower end of estimated protein needs Please see Nutrition F/U for details. CARE HOME, RD
--- NOTE | 2021-08-03 14:25 | NUR ---
WOUND EVALUATION: Late note for 08/03/2021 at 1425 secondary to patient care. Wound Consult received from Dr. Rice. Thank you, Dr. Rice, for the consult. Patient received in a [place] [facility] bed with an Isoflex NATAN mattress, awake, alert, and oriented, nonverbal secondary to tracheostomy. Patient is unable to turn in bed with. Eduardo Score is a 9. Past Medical History: Chronic Respiratory Failure, G-tube feeding, chronic constipation, ALS, CPAP/BiPAP use at home. Recent Labs: WBC 10.0, RBC 3.14, hemoglobin 9.5, hematocrit 28.9, potassium 3.4, BUN 25, creatinine 0.69, GFR 122, serum total protein 6.1, albumin 2.6. Microbiology: Blood culture results x2 positive for Staphylococcus coag negative and Staphylococcus epidermidis. Endotracheal sputum culture results positive for Pseudomonas aeruginosa (OFFICE BOOKKEEPER). WBC smear results negative. Stool C. difficile results negative. Stool Shiga toxin results in progress. PICC line to culture results in progress. Intrinsic factors that delay wound healing: Chronic Respiratory Failure, ALS, Hypoalbuminemia. Extrinsic factors that delay wound healing: Decreased mobility. Wound Assessment: 1. Left Buttock: Stage II pressure ulcer, present on admission. Site has IAD with MASD and erythema. Scabs and surrounding dry flaky skin have resolved. Wound bed has 100% red tissue. No odor, no drainage. Periwound intact. 2. Right Buttock: IAD with MASD. Site has erythema with multiple small open areas with healed pink scar tissue. Surrounding dry flaky skin has resolved. Recommend: Cleanse left buttock with normal saline, right buttock with mild soap and water. Pat dry. Apply Calmoseptine cream to all involved areas. Apply Venelex ointment to any non-intact areas not covered by Calmoseptine cream. Cover with Sacral foam dressing. Perform site care daily, and as needed for dressing soiling or dislodgment. 3. Intergluteal Cleft: Scar tissue, present on admission. No odor, no drainage. Recommend: Cleanse site with normal saline. Apply Calmoseptine cream to site. Cover with same Sacral foam dressing used for sites 1 and 2. Perform site care daily, and as needed for dressing soiling or dislodgement. 4. Left Heel: Blanchable redness. 5. Right Heel: Blanchable redness. Recommend: Elevate, offload and float bilateral heels with one pillow lengthwise under each extremity at all times. Also recommend: Encourage and assist patient with repositioning side to side only every 2 hours with pillow support and off-load pressure areas with pillows for pressure re-distribution. Offload, elevate and float bilateral heels with one pillow lengthwise under each extremity at all times. Perform skin care and monitor skin integrity Q shift. Use moisture barrier cream on buttocks and other moisture susceptible areas QID and as needed for soiling. Initiate low air-loss therapy.
[2021-08-03] MEDS ORDERED: BALSAM PERU/CASTOR OIL 60 GM OINT...G. TP ONE (15:45)
--- NOTE | 2021-08-03 16:45 | NUR ---
MD rounds Dr. Rice into to see the patient, updated on current status. MD recommends patient to have apple juice rather than feedings for the rest of the day. Will refer to MD noted for other updates.
--- NOTE | 2021-08-03 18:26 | NUR ---
CLOSING NOTE Patient is resting in bed nonverbal due to trach, is at bedside, able to communicate for her . no signs or symptoms respiratory distress, tolerating vent settings well. IV is infusing no signs or symptoms of infiltration. All needs were met. Bed is in lowest positions call light within reach, contact, fall and aspiration precautions are in place. Will endorse report to major account manager.
[2021-08-03] MEDS: RILUZOLE 50MG TABLET PO SCH (21:03)
[2021-08-03] MEDS: DIPHENHYDRAMINE HCL 25 MG CAPSULE PO SCH (21:04)
[2021-08-03] MEDS: ALPRAZolam 0.25 MG TABLET PO SCH (21:04)
[2021-08-04] MEDS: D5/0.45 NS 1,000 ML IV SCH ×2 (00:04→22:54)
[2021-08-04 00:30] VITALS: BP_SYST 107
[2021-08-04] MEDS: IPRATROPIUM/ALBUTEROL SULFATE 3 ML AMPUL.NEB (DUONEB) INH SCH ×4 (01:24→19:41)
[2021-08-04] MEDS: CEFTAZIDIME 1 GM in D5W 50 ML IV SCH ×3 (05:42→22:53)
[2021-08-04 05:53] LABS: BASOPHILS # (AUTO) 0.1 K/uL (0.0-0.2); BASOPHILS % (AUTO) 0.9 % (0.0-2.0); EOSINOPHILS # (AUTO) 0.3 K/uL (0.0-0.4); EOSINOPHILS % (AUTO) 3.6 % (0.0-4.0); HEMATOCRIT 25.8 % (36-54); HEMOGLOBIN 8.7 g/dL (14.0-18.0); LYMPHOCYTES % (AUTO) 10.1 % (20.5-51.5); MEAN CORPUSCULAR HEMOGLOBIN 31 pg (27-31); MEAN CORPUSCULAR HGB CONC 34 % (32-36); MEAN CORPUSCULAR VOLUME 92 fL (79.0-98.0); MONOCYTES % (AUTO) 10.8 % (1.7-9.3); NEUTROPHILS # (AUTO) 7.2 K/uL (1.8-7.7); NEUTROPHILS % (AUTO) 74.6 % (40.0-70.0); PLATELET COUNT (AUTO) 184 K/uL (130-430); RED BLOOD CELL COUNT(AUTO) 2.82 MIL/uL (4.2-6.2); WHITE BLOOD COUNT (AUTO) 9.6 K/uL (4.8-10.8)
--- NOTE | 2021-08-04 06:46 | NUR ---
PT IS AWAKE AND RESTING COMFORTABLY IN BED. PT IS TOLERATING VENT SETTINGS WELL. ALL PT'S NEEDS WERE ATTENDED TO. IS IN A RECLINER AT THE BEDSIDE. WILL ENDORSE TO DAY SHIFT NURSE.
[2021-08-04 06:55] LABS: ALBUMIN 2.6 g/dL (3.4-4.8); CALCIUM 9.8 mg/dL (8.4-11.0); CREATININE 0.69 mg/dL (0.55-1.30); POTASSIUM 3.4 mmol/L (3.5-5.1); TOTAL BILIRUBIN 0.6 mg/dL (0.0-1.0)
[2021-08-04 08:00] VITALS: BP_SYST 101
--- NOTE | 2021-08-04 08:48 | NUR ---
PHYSICAL THERAPY CO-SIGN The Physical Therapy Progress Notes documented by Linen Keeper have been reviewed. Reviewed/Co-Signed by: Wiley Castro Documentation Done by: TAIWO BLANKENSHIP PTA Addendum: 08/04/21 at 0848 by Wiley Castro PT Amended: Links added.
[2021-08-04] MEDS: CHOLECALCIFEROL (VITAMIN D3) 2,000 UNIT TABLET PO SCH (09:38)
[2021-08-04] MEDS: LACTOBACILLUS RHAMNOSUS GG 1 CAP CAPSULE PO SCH ×2 (09:38→22:49)
[2021-08-04] MEDS: busPIRone HCL 5 MG TABLET PO SCH ×3 (09:39→22:48)
[2021-08-04] MEDS: LORATADINE 10 MG TABLET PO SCH (09:39)
[2021-08-04] MEDS: MULTIVITAMINS TAB 1 TABLET PO SCH (09:39)
[2021-08-04] MEDS: DOXAZOSIN MESYLATE 2 MG TABLET PO SCH ×2 (09:39→22:49)
[2021-08-04] MEDS: MENTHOL/ZINC OXIDE 113 GM OINT. TP SCH ×2 (09:40→22:52)
[2021-08-04] MEDS ORDERED: DOXAZOSIN MESYLATE 2 MG TABLET ONE (09:41)
[2021-08-04] MEDS: CITALOPRAM HYDROBROMIDE 20 MG TABLET PO SCH (09:47)
[2021-08-04] MEDS: BALSAM PERU/CASTOR OIL 60 GM OINT...G. TP SCH (09:48)
[2021-08-04] MEDS: RILUZOLE 50MG TABLET PO SCH ×2 (09:48→21:00)
[2021-08-04] MEDS: LOPERAMIDE HCL 2 MG CAPSULE GT PRN ×2 (11:28→19:55)
[2021-08-04] MEDS ORDERED: POTASSIUM CHLORIDE 20 MEQ/PKT PACKET GT ONE (11:30)
--- NOTE | 2021-08-04 11:50 | NUR ---
G.I. CONSULT DR MERCADO CAME IN TO EXAMINE PATIENT, AT BEDSIDE. INTERVIEWED PT'S SPOUSE.
--- NOTE | 2021-08-04 12:00 | NUR ---
SKIN CARE FOAM DRESSING REMOVED FROM BUTTOCKS, CLEANSED PERINEAL, BUTTOCKS WITH SOAPY TOWEL, INCONTINENT OF BOWEL, SEMI SOFT STOOL. WASHED WOUND WITH SALINE, PAT DRY, VENELEX OINTMENT APPLIED TO WOUND ON LEFT BUTTOCK, 100% RED TISSUE, OPTIFOAM DRESSING TO COVER. CALMOSEPTINE CREAM TO RIGHT BUTTOCK AND SURROUNDING LEFT BUTTOCK, GROINS AREA.
[2021-08-04 12:46] VITALS: BP_SYST 124
[2021-08-04] MEDS: VANCOMYCIN HCL 1,000 MG in NS 250 ML IV SCH (12:53)
--- NOTE | 2021-08-04 13:52 | NUR ---
CONSULTATION: REASON FOR CONSULT: GT MALFUNCTION CONSULTING PHYSICIAN: Nito MERCADO ORDERED BY: VERENICE MERCADO IS ALREADY IN THE HOSPITAL AND IS AWARE OF THE CONSULT. SEEN THE PATIENT ALREADY
[2021-08-04] MEDS: FERROUS SULFATE 300 MG/5 ML UDC GT SCH ×2 (15:36→22:48)
[2021-08-04 16:35] VITALS: BP_SYST 110
--- NOTE | 2021-08-04 19:15 | NUR ---
OPENING NOTES: Received patient report from morning shift nurse. Patient in bed, AAOx4, breathing evenly and nonlabored on trach to vent, patient tolerating it well, no s/s of distress, HOB elevated. Patient has an IV on the right wrist 18G, patent, benign, and flushing. No s/s of infection or infiltration. Patient has a G tube, no residual noted. Patient has a fishman catheter secured, intact, and draining by gravity. Educated patient plan of care. Fall/safety/isolation precaution. Will continue to monitor.
[2021-08-04] MEDS: ALPRAZolam 0.25 MG TABLET PO SCH (19:55)
[2021-08-04] MEDS: ACETAMINOPHEN 500 MG TABLET PO PRN (19:55)
[2021-08-04 20:00] VITALS: BP_SYST 104
[2021-08-04] MEDS: DIPHENHYDRAMINE HCL 25 MG CAPSULE PO SCH (22:48)
[2021-08-04] MEDS: NYSTATIN 15 GM TOPICAL POWDER TP SCH (22:53)
--- NOTE | 2021-08-05 | NUR ---
ROUNDS: Patient in bed, eyes closed, breathing evenly and nonlabored on trach to vent, VSS, will continue to monitor.
[2021-08-05 00:30] VITALS: BP_SYST 108
[2021-08-05] MEDS: VANCOMYCIN HCL 1,000 MG in NS 250 ML IV SCH ×2 (00:30→11:11)
[2021-08-05] MEDS: IPRATROPIUM/ALBUTEROL SULFATE 3 ML AMPUL.NEB (DUONEB) INH SCH ×4 (00:57→19:37)
[2021-08-05] MEDS: CEFTAZIDIME 1 GM in D5W 50 ML IV SCH ×3 (05:38→21:05)
[2021-08-05] MEDS: LOPERAMIDE HCL 2 MG CAPSULE GT PRN ×3 (05:38→16:31)
--- NOTE | 2021-08-05 06:21 | NUR ---
CLOSING NOTES: Patient in bed, AAOx4, breathing evenly and nonlabored on trach to vent, patient tolerating it well, no s/s of distress, HOB elevated. Patient has an IV on the right wrist 18G, patent, benign, and flushing. Patient has a PICC line inserted on the left upper extremity. No s/s of infection or infiltration. Patient has a G tube, no residual noted. Patient has a fishman catheter secured, intact, and draining by gravity. Fall/safety/isolation precaution. Will continue to monitor and endorse care to morning shift nurse. All needs met at this time.
[2021-08-05 07:50] VITALS: BP_SYST 106
[2021-08-05 08:00] VITALS: BP_SYST 106
[2021-08-05] MEDS: busPIRone HCL 5 MG TABLET PO SCH ×3 (08:36→21:04)
[2021-08-05] MEDS: FERROUS SULFATE 300 MG/5 ML UDC GT SCH ×3 (08:36→21:04)
[2021-08-05] MEDS: CITALOPRAM HYDROBROMIDE 20 MG TABLET PO SCH (08:37)
[2021-08-05] MEDS: LACTOBACILLUS RHAMNOSUS GG 1 CAP CAPSULE PO SCH ×2 (08:37→21:04)
[2021-08-05] MEDS: CHOLECALCIFEROL (VITAMIN D3) 2,000 UNIT TABLET PO SCH (08:37)
[2021-08-05] MEDS: MULTIVITAMINS TAB 1 TABLET PO SCH (08:37)
[2021-08-05] MEDS: LORATADINE 10 MG TABLET PO SCH (08:37)
[2021-08-05] MEDS: DOXAZOSIN MESYLATE 2 MG TABLET PO SCH (08:37)
[2021-08-05] MEDS: BALSAM PERU/CASTOR OIL 60 GM OINT...G. TP SCH (08:48)
[2021-08-05] MEDS: NYSTATIN 15 GM TOPICAL POWDER TP SCH ×2 (08:48→21:06)
[2021-08-05] MEDS: MENTHOL/ZINC OXIDE 113 GM OINT. TP SCH ×2 (08:48→21:06)
[2021-08-05] MEDS: RILUZOLE 50MG TABLET PO SCH ×2 (08:53→21:00)
--- NOTE | 2021-08-05 10:00 | NUR ---
NOTE Dr Bruce (GI) at pt's bedside at 09am. Pt's requested GT be replaced. Dr Raman changed GT at bedside at this time. Pt tolerated change of GT well. Pt resting at this time. No needs noted. Call light within reach. Pt's Kristina has been at bedside all shift.
[2021-08-05 11:35] VITALS: BP_SYST 104
--- NOTE | 2021-08-05 11:45 | NUR ---
Note Pt's went home to shower, pt's sister Vidhya at bedside to care for pt at this time. Pt denies any needs at this time.
[2021-08-05] MEDS: ACETAMINOPHEN 500 MG TABLET PO PRN ×2 (13:24→20:03)
[2021-08-05] MEDS ORDERED: BUSP5TAB3 GT (14:34)
[2021-08-05] MEDS ORDERED: LOPE2CAP PO (14:34)
--- NOTE | 2021-08-05 15:45 | NUR ---
Note Dr Rice was at pt's bedside to assess pt, pt's sister Vidhya was at bedside. Dr Rice wrote orders to be carried out at this time. Pt stable and resting in bed. Call light within reach.
--- NOTE | 2021-08-05 15:45 | NUR ---
CM note: faxed hh and iv abx order to Nehemias at [facility]. Nehemias confirmed home care resumption and arranged the iv abx as ordered. Also, L[facility] to Sebastian[facility] to resume vent care. >> Mikayla /spouse aware : planing to dc pt this pm or tomorrow morning. Addendum: 08/05/21 at 1735 by Indigo Rdz RN Discussed dc to home tomorrow with Mikayla, she requests pt be discharged before noon. The pt will need to complete IV Fortaz and IV Vancomycin by 10 am. The am pillowcase turner, please arrange the ambulance citrus picker by noon. RAFAELA Martin aware and to manage/give the dcp message to the on coming nurse.
[2021-08-05] MEDS: D5/0.45 NS 1,000 ML IV SCH (16:07)
[2021-08-05] MEDS: LORazepam 2 MG/ML VIAL IVP PRN (16:08)
[2021-08-05 16:09] VITALS: BP_SYST 102
--- NOTE | 2021-08-05 17:35 | NUR ---
Note Called Dr Rice to see if Vanco IVPB dose at 1200 can be scheduled earlier. Waiting for call back.
--- NOTE | 2021-08-05 18:20 | NUR ---
Note Pt resting in bed. PT was checked on q1' and PRN all shift for needs and care. Pt's bed in low position and bed alarm on all shift. Pt was given hygiene care frequently for bowel incontinence and urine leakage. Pt's at bedside at this time. No needs noted. Call light within reach. RT has been at bedside throughout the shift giving breathing treatments as scheduled or PRN. Mechanical ventilation oxygenating pt well. SALINAS PICC intact and patent. Right wrist IV intact and patent infusing IVF's well.
--- NOTE | 2021-08-05 19:15 | NUR ---
OPENING NOTE BEDSIDE REPORT RECEIVED FROM DAYSHIFT NURSE. PATIENT RECEIVED LYING IN BED, AWAKE, AT BEDSIDE FEEDING PATIENT THROUGH G-TUBE. HOB RAISED, NO S/S OF ACUTE DISTRESS. BREATHING EVEN AND UNLABORED. TRACH TO VENT ATTACHED AND OPERATING. IVF INFUSING WELL. IV SITE PATENT, NO SIGNS OF INFILTRATION OR INFECTION NOTED. CALL LIGHT WITH PATIENT. BED ALARM ON. BED IS LOCKED AND AT LOWEST POSITION. WILL CONTINUE TO MONITOR.
[2021-08-05] MEDS: ALPRAZolam 0.25 MG TABLET PO SCH (20:03)
[2021-08-05] MEDS: DIPHENHYDRAMINE HCL 25 MG CAPSULE PO SCH (21:04)
[2021-08-05 23:38] LABS: BILIRUBIN,URINE NEGATIVE (NEGATIVE); BLOOD, URINE NEGATIVE (NEGATIVE); CLARITY/URINE CLEAR (CLEAR); COLOR,URINE YELLOW (YELLOW); GLUCOSE,URINE NEGATIVE (NEGATIVE); KETONES,URINE NEGATIVE (NEGATIVE); LEUKOCYTE ESTERASE ,URINE TRACE (NEGATIVE); NITRITE, URINE NEGATIVE (NEGATIVE); PROTEIN URINE NEGATIVE (NEGATIVE); UROBILINOGEN,URINE 0.2 (0.2-1.0)
[2021-08-05 23:58] LABS: BACTERIA,URINE FEW /HPF (None Seen); RBC,URINE 0-3 /HPF (0-3)
--- NOTE | 2021-08-06 | NUR ---
ROUNDS PATIENT IN BED ASLEEP. NO SIGNS OF DISCOMFORT NOTED. CALL LIGHT WITH PATIENT. BED ALARM ON. WILL CONTINUE TO MONITOR.
[2021-08-06] MEDS: VANCOMYCIN HCL 1,000 MG in NS 250 ML IV SCH ×2 (00:08→10:28)
[2021-08-06 00:29] VITALS: BP_SYST 98
[2021-08-06] MEDS: ACETAMINOPHEN 500 MG TABLET PO PRN (04:05)
[2021-08-06] MEDS: LOPERAMIDE HCL 2 MG CAPSULE GT PRN ×3 (04:05→11:53)
[2021-08-06] MEDS: IPRATROPIUM/ALBUTEROL SULFATE 3 ML AMPUL.NEB (DUONEB) INH SCH ×3 (04:28→12:37)
[2021-08-06] MEDS: LORazepam 2 MG/ML VIAL IVP PRN (04:43)
[2021-08-06] MEDS: CEFTAZIDIME 1 GM in D5W 50 ML IV SCH (06:05)
--- NOTE | 2021-08-06 06:38 | NUR ---
CLOSING NOTE PATIENT IN BED, ASLEEP, NO S/S OF ACUTE DISTRESS NOTED. BREATHING EVEN AND UNLABORED. HOB RAISED. VENT TO TRACH ATTACHED AND OPERATING, PATIENT TOLERATING WELL, SPO2 99. IVF INFUSING WELL, IV SITE PATENT, NO SIGNS OF INFILTRATION OR INFECTION NOTED. MAZARIEGOS ATTACHED, SECURED, AND DRAINING BY GRAVITY. ALL NEEDS MET THROUGHOUT SHIFT. FALL, SAFETY, ISOLATION PRECAUTIONS MAINTAINED THROUGHOUT SHIFT. WILL CONTINUE TO MONITOR.
[2021-08-06 07:56] VITALS: BP_SYST 90
[2021-08-06] MEDS ORDERED: GASTROGRAFIN 120 ML ONE (08:26)
[2021-08-06] MEDS: FERROUS SULFATE 300 MG/5 ML UDC GT SCH (08:34)
[2021-08-06] MEDS: LACTOBACILLUS RHAMNOSUS GG 1 CAP CAPSULE PO SCH (08:34)
[2021-08-06] MEDS: busPIRone HCL 5 MG TABLET PO SCH (08:34)
[2021-08-06] MEDS: MULTIVITAMINS TAB 1 TABLET PO SCH (08:35)
[2021-08-06] MEDS: LORATADINE 10 MG TABLET PO SCH (08:35)
[2021-08-06] MEDS: CHOLECALCIFEROL (VITAMIN D3) 2,000 UNIT TABLET PO SCH (08:35)
[2021-08-06] MEDS: CITALOPRAM HYDROBROMIDE 20 MG TABLET PO SCH (08:35)
[2021-08-06] MEDS: MENTHOL/ZINC OXIDE 113 GM OINT. TP SCH (08:42)
[2021-08-06] MEDS: BALSAM PERU/CASTOR OIL 60 GM OINT...G. TP SCH (08:42)
[2021-08-06] MEDS: NYSTATIN 15 GM TOPICAL POWDER TP SCH (08:43)
--- NOTE | 2021-08-06 10:00 | NUR ---
Case mgt: Confirmed with home health RN Nehemias Amor at [phone] that all arrangements for home IV abx, trach/vent care have been made and Nehemias was made aware that RN has to be at pt's home to receive the pt per [place] state guidelines and Per Denis at [facility] arranged for 12:30pm today for trach/vent bed bound pt-on isolation--Covid neg 07/28/21-Has G-tube. S/W Alba at bedside and she confirmed she is agreeable for home discharge at 1230pm today and indicates pt has been home on ventilator for several months and has two ventilators (one currently at bedside now)-Nurse Eliseo made aware of transport time. Home Health nurse Nehemias made aware pt received IV Fortaz at 0600 today and will receive IV Vancomycin dose prior to discharge today--tongue and groove machine feeder Chona also made aware. RAFAELA
[2021-08-06] MEDS: RILUZOLE 50MG TABLET PO SCH (10:28)
[2021-08-06 11:23] VITALS: BP_SYST 110
[2021-08-06 11:25] VITALS: BP_SYST 110
--- NOTE | 2021-08-06 11:34 | NUR ---
Dispo code 06-home with home health
[2021-08-06] MEDS: ALPRAZolam 0.25 MG TABLET PO PRN (11:51)
--- NOTE | 2021-08-06 13:18 | NUR ---
D/C Patient Patient given medication reconciliation form and D/C instructions. Exit Care provided. Patient CAREGIVER verbalized understanding. MD discussed with patient the results and treatment provided. NON-Ambulatory for discharge to home. Patient in stable condition, ID band removed. Peripheral IV catheter removed, no bleeding . Pt is going home with PICC line , Mejia, trache and G-tube. All intact and patent. Rx of given. Patient caregiver educated on pain management. All belongings sent with patient.
== END 2021-08-06 13:10 | disposition home health service (06) | DRG 698 ==
LOC: SED 12:26 → STU 07-28 00:03
PROVIDERS: ADMIT Internal Medicine; ATTEND Internal Medicine
PROC: 5A1955Z Respiratory Ventilation, Greater than 96 Consecutive Hours (ICD-10-PCS; principal; 2021-07-27)
PROC: 0D20XUZ Change Feeding Device in Upper Intestinal Tract, External Approach (ICD-10-PCS; 2021-08-05)
DX: T83.091A Other mechanical complication of indwelling urethral catheter, initial encounter (principal); A41.9 Sepsis, unspecified organism; J96.20 Acute and chronic respiratory failure, unspecified whether with hypoxia or hypercapnia; J15.1 Pneumonia due to Pseudomonas; J69.0 Pneumonitis due to inhalation of food and vomit; E44.1 Mild protein-calorie malnutrition; J95.851 Ventilator associated pneumonia; G12.21 Amyotrophic lateral sclerosis; K94.23 Gastrostomy malfunction; J90 Pleural effusion, not elsewhere classified; Z16.19 Resistance to other specified beta lactam antibiotics; Z99.11 Dependence on respirator [ventilator] status; N39.0 Urinary tract infection, site not specified; R31.9 Hematuria, unspecified; D63.8 Anemia in other chronic diseases classified elsewhere; K59.09 Other constipation; F41.9 Anxiety disorder, unspecified; Y83.8 Other surgical procedures as the cause of abnormal reaction of the patient, or of later complication, without mention of misadventure at the time of the procedure; Y82.8 Other medical devices associated with adverse incidents; R13.10 Dysphagia, unspecified; B95.8 Unspecified staphylococcus as the cause of diseases classified elsewhere; I10 Essential (primary) hypertension; R19.7 Diarrhea, unspecified; Y95 Nosocomial condition; Z20.822 Contact with and (suspected) exposure to COVID-19; Z88.5 Allergy status to narcotic agent; Z79.899 Other long term (current) drug therapy; Z68.22 Body mass index [BMI] 22.0-22.9, adult; Y92.89 Other specified places as the place of occurrence of the external cause; Z87.01 Personal history of pneumonia (recurrent)
CPT/HCPCS: 36415; 36600; 71045; 74240-TC; 80048; 80053; 80202; 81000; 82150; 82550; 82803-TC; 83690; 83880; 84484; 85025; 85379; 85610-TC; 85730-TC; 87040-TC; 87045-TC; 87046; 87070-TC; 87086; 87186-TC; 87205-TC; 87230-TC; 89055; 93005; 94002; 94003; 94640; 94760; 96365; 96375; 97110-GP; 99285; G0378; J0456; J0713; J2060; J2543; J3370; J7050; J7060; Q0163; Q9963

== ENCOUNTER 2021-08-07 22:17 | Inpatient (IN) | payer OTHER, MEDICARE, SELFPAY ==
[~2021-08-07] VITALS: Ht 177.8 cm; Wt 77.1 kg
[~2021-08-07 22:17] MED LIST changes: +BUSP5TAB3 GT; -BUSP5TAB3 PO; -CITA10TA17 PO; -DOXA2TAB PO; -LACT1TAB14 PO; -LACT30003 GT; -LEVO250T58 PO; +LOPE2CAP PO; -MELA3CAP PO; -POLY17PO4 PO; -SENN8.6T19 PO
[2021-08-07 22:19] VITALS: BP_SYST 143
--- NOTE | 2021-08-07 22:20 | NUR ---
Patient to ER bed 1 to gown for evaluation. Side rails up. Report given to GUERO RUSSO.
--- NOTE | 2021-08-07 22:28 | NUR ---
ER at bedside examining patient.
[2021-08-07] MEDS ORDERED: cefTRIAXone 1 GM IVPB PREMIX 50 ML IV ONE (22:30)
[2021-08-07] MEDS ORDERED: NS 1000 ML IV.SOLN IV ONE (22:30)
--- NOTE | 2021-08-07 22:30 | NUR ---
PT BIB [facility] AMBULANCE FOR COMPLAINTS OF O2 DESATURATION. PT IS A TRACH PT. ALS CALLED MACIEJSE AT HOME NOTICED HIS SAT WAS GOING DOWN AND SHE PERFORMED CPR ON HIM. UPON ARRIVAL BY MEDICS, PT WAS PUT ON O2 AND BVM WAS APPLIED. PTS SATS WENT UP TO 96. PT IS SATING ON 97 % NOW VSS. 117/76, SPO 98, RR 28, P86. PTS VENT SETTINGS AT V 500, F22, PEEP 5 AND O2 OF 50%. PT IS NONVERBAL BUT FOLLOWS COMMANDS. PT IS BEDBOUND
--- NOTE | 2021-08-07 22:39 | NUR ---
PT IS A DNR/ CPOMFORT MEASURES ONLY. POSLT SIGNED AND PLACED IN THE CHART
--- NOTE | 2021-08-07 22:50 | NUR ---
# 20 gauge angiocath placed to L FOREARM. Use of asceptic technique. Opsite placed over site. Blood return noted. Flushed with 10 cc of normal saline. No evidence of infiltration noted. Patient tolerated well.
--- NOTE | 2021-08-07 23:03 | NUR ---
# 16 FR Fishman catheter with use of sterile technique. Immediate return of 100 cc YELLOW urine noted. Bedside drainage bag placed below level of bladder. Urine sample collected and sent to lab. Pt tolerated procedure WELL. Patient arrived with fishman in place, changed due to standard of practice prior to admission. Patient unable to toilet self.
[2021-08-07 23:20] LABS: BILIRUBIN,URINE NEGATIVE (NEGATIVE); BLOOD, URINE 3+ (NEGATIVE); COLOR,URINE YELLOW (YELLOW); GLUCOSE,URINE 2+ (NEGATIVE); KETONES,URINE NEGATIVE (NEGATIVE); LEUKOCYTE ESTERASE ,URINE NEGATIVE (NEGATIVE); NITRITE, URINE NEGATIVE (NEGATIVE); PH,URINE 6.5 (5.0-8.0); PROTEIN URINE 2+ (NEGATIVE); UROBILINOGEN,URINE 0.2 (0.2-1.0)
[2021-08-07 23:31] LABS: CALCIUM 9.4 mg/dL (8.4-11.0); CREATININE 0.76 mg/dL (0.55-1.30); POTASSIUM 4.5 mmol/L (3.5-5.1)
[2021-08-07 23:34] LABS: HEMATOCRIT 28.9 % (36-54); HEMOGLOBIN 9.4 g/dL (14.0-18.0); MEAN CORPUSCULAR HEMOGLOBIN 30 pg (27-31); MEAN CORPUSCULAR HGB CONC 33 % (32-36); MEAN CORPUSCULAR VOLUME 93 fL (79.0-98.0); PLATELET COUNT (AUTO) 227 K/uL (130-430); RED CELL DISTRIBUTION WIDTH 15.1 % (9.0-15.0); WHITE BLOOD COUNT (AUTO) 11.9 K/uL (4.8-10.8)
[2021-08-07 23:37] LABS: ALBUMIN 2.6 g/dL (3.4-4.8); TOTAL BILIRUBIN 0.3 mg/dL (0.0-1.0)
[2021-08-07 23:41] LABS: CLARITY/URINE HAZY (CLEAR)
[2021-08-07 23:58] LABS: BACTERIA,URINE FEW /HPF (None Seen); RBC,URINE 20-50 /HPF (0-3)
--- NOTE | 2021-08-08 00:05 | NUR ---
PTS FAMILY AT BEDSIDE. AWARE OF THE SITUATION.
[2021-08-08 00:41] LABS: BAND % (MANUAL) 6 % (0-6); BASOPHILS % (MANUAL) 0 % (0-2); EOSINOPHILS % (MANUAL) 1 % (0-7); LYMPHOCYTES % (MANUAL) 4 % (20-46); METAMYELOCYTES % 8 % (0-0); MONOCYTES % (MANUAL) 4 % (0-11)
--- NOTE | 2021-08-08 01:37 | NUR ---
PT SLEEPING COMFORTABLY IN BED AND WAITING FOR A ROOM TO BE ADMITTED
[2021-08-08] MEDS: D5/0.45 NS 1,000 ML IV SCH ×2 (01:51→20:31)
--- NOTE | 2021-08-08 01:52 | NUR ---
BELONGINGS LIST COMPLETE
--- NOTE | 2021-08-08 01:52 | NUR ---
Medication reconciliation completed with information provided by THE PATIENTS CHART. Any prior medication reconciliation on file was reviewed and corrected.
--- NOTE | 2021-08-08 04:15 | NUR ---
PT MOVED TO A HOSPITAL BED FOR COMFORT
[2021-08-08] MEDS ORDERED: KETOROLAC TROMETHAMINE 30 MG VIAL IVP ONE (05:30)
[2021-08-08] MEDS ORDERED: KETOROLAC TROMETHAMINE 30 MG VIAL ONE (05:41)
--- NOTE | 2021-08-08 05:45 | NUR ---
PT GIVEN TSAI MEDS FOR CHEST DISCOMFORT FROM PREVIOUS CPR ATTEMPT BY . PT IS ABLE TO SLEEP CALMLY
[2021-08-08 07:00] VITALS: BP_SYST 114
--- NOTE | 2021-08-08 07:00 | NUR ---
Assumed care of patient, report received from RAFAELA Ram. Pt currently resting in bed, no acute distress noted.
--- NOTE | 2021-08-08 07:20 | NUR ---
Pt had small bowel movement, pericare and linen change performed. Pt tolerated well.
--- NOTE | 2021-08-08 07:50 | NUR ---
Patient will be admitted to care of Dr. Banegas. Admitted to med-surg unit. Will go to room 107B. Belongings list completed. Complete and up to date summary report printed. SBAR report to be given at bedside with opportunity for questions.
--- NOTE | 2021-08-08 08:20 | NUR ---
PATIENT ADMITTED TO FLOOR, TRANSPORTED FROM IN [facility], LEFT UPPER ARM PICC LINE IN PLACE INTACT PATENT WITH BLOOD RETURN, TRACH IN PLACE TO VENT, O2 SAT >95%, NO PAIN AT THIS TIME, AT BEDSIDE, PATIENT IS NONVERBAL, WILL TAKE PICTURE OF SACRAL WOUND, LEFT FOREARM IV INTACT PATENT, A/OX4 BUT NON VERBAL, WILL USE TO AID IN ADMISSION QUESTIONS.
[2021-08-08] MEDS ORDERED: cefTRIAXone 1 GM in D5W 50 ML IV SCH (09:00)
--- NOTE | 2021-08-08 09:03 | NUR ---
CONSULTATION PAGED/CALLED Reason for Consultation: [] ELEVATED WBC Person Who was Notified: [] FER Consulting Physician: [] DR MARIELA ARNDT Tunneller Specialty: [] ID Ordering Physician: [] DR VITALE
[2021-08-08 09:36] VITALS: BP_SYST 128
[2021-08-08] MEDS ORDERED: AZITHROMYCIN 500 MG in NS 250 ML IV SCH (10:00)
[2021-08-08] MEDS ORDERED: GUAI600T45 NEB (10:31)
[2021-08-08 11:33] VITALS: BP_SYST 112
--- NOTE | 2021-08-08 12:00 | NUR ---
PATIENT IN BED, NO S/S OF DISTRESS, AT BEDSIDE TOLERATING CARE, NO COMPLAINTS OR NEEDS AT THIS TIME
[2021-08-08] MEDS: LORazepam 2 MG/ML VIAL IVP PRN ×2 (14:23→20:52)
[2021-08-08 15:40] VITALS: BP_SYST 140
--- NOTE | 2021-08-08 16:04 | NUR ---
CONSULT PULMONOLOGY PNA MARGI EMERSON [phone] S/W LUCAS EXCHANGE
[2021-08-08] MEDS: CEFTAZIDIME 1 GM in D5W 50 ML IV SCH ×2 (17:28→20:30)
[2021-08-08] MEDS: VANCOMYCIN HCL 1,250 MG in NS 250 ML IV SCH (18:23)
[2021-08-08] MEDS: GENTAMICIN 120 MG/ ISO-OSM 100 ML PREMIX IV SCH (18:24)
[2021-08-08] MEDS ORDERED: ALPRAZolam 0.25 MG TABLET PO PRN (18:45)
[2021-08-08] MEDS: IPRATROPIUM/ALBUTEROL SULFATE 3 ML AMPUL.NEB (DUONEB) INH SCH (19:06)
--- NOTE | 2021-08-08 19:07 | NUR ---
PATIENT IN BED, AT BEDSIDE ALL NEEDS MET, CLEANED FOR DIARRHEA DURING THE SHIFT, IMODIUM ORDERED WILL ENDORSE TO GIVE TO SUTURE WINDER HAND.
--- NOTE | 2021-08-08 19:30 | NUR ---
Opening note Received report from day shift. Pt is awake lying in bed with and sister at the bedside. No s/s of respiratory distress noted. PICC line site is intact and patent with fluids running at ordered rate. Fall and safety precautions are in place. Will continue to monitor
[2021-08-08 20:00] VITALS: BP_SYST 105
[2021-08-08] MEDS: LOPERAMIDE HCL 2 MG CAPSULE PO SCH (20:30)
[2021-08-08] MEDS: busPIRone HCL 5 MG TABLET GT SCH (20:31)
[2021-08-08] MEDS ORDERED: RILUZOLE 50 MG TABLET PO SCH (21:00)
[2021-08-08 21:05] VITALS: BP_SYST 105
--- NOTE | 2021-08-09 00:16 | NUR ---
RN rounds Pt is sleeping. No s/s of respiratory distress. at bedside. No needs at this time. Will continue to monitor
[2021-08-09] MEDS: IPRATROPIUM/ALBUTEROL SULFATE 3 ML AMPUL.NEB (DUONEB) INH SCH ×4 (01:27→21:09)
[2021-08-09 01:30] VITALS: BP_SYST 101
[2021-08-09] MEDS: VANCOMYCIN HCL 1,250 MG in NS 250 ML IV SCH ×2 (03:21→17:05)
[2021-08-09] MEDS: CEFTAZIDIME 1 GM in D5W 50 ML IV SCH ×3 (05:17→21:03)
[2021-08-09 06:28] LABS: BASOPHILS # (AUTO) 0.1 K/uL (0.0-0.2); BASOPHILS % (AUTO) 0.9 % (0.0-2.0); CALCIUM 9.1 mg/dL (8.4-11.0); CREATININE 0.67 mg/dL (0.55-1.30); EOSINOPHILS # (AUTO) 0.4 K/uL (0.0-0.4); EOSINOPHILS % (AUTO) 4.3 % (0.0-4.0); HEMATOCRIT 23.6 % (36-54); HEMOGLOBIN 7.7 g/dL (14.0-18.0); LYMPHOCYTES # (AUTO) 0.7 K/uL (1.0-5.5); LYMPHOCYTES % (AUTO) 7.1 % (20.5-51.5); MEAN CORPUSCULAR HEMOGLOBIN 30 pg (27-31); MEAN CORPUSCULAR HGB CONC 33 % (32-36); MEAN CORPUSCULAR VOLUME 92 fL (79.0-98.0); MONOCYTES # (AUTO) 1.1 K/uL (0.0-1.0); MONOCYTES % (AUTO) 10.9 % (1.7-9.3); NEUTROPHILS # (AUTO) 7.7 K/uL (1.8-7.7); NEUTROPHILS % (AUTO) 76.8 % (40.0-70.0); PLATELET COUNT (AUTO) 181 K/uL (130-430); POTASSIUM 4.1 mmol/L (3.5-5.1); RED BLOOD CELL COUNT(AUTO) 2.56 MIL/uL (4.2-6.2); RED CELL DISTRIBUTION WIDTH 15.5 % (9.0-15.0)
[2021-08-09 06:33] LABS: ALBUMIN 2.4 g/dL (3.4-4.8); TOTAL BILIRUBIN 0.4 mg/dL (0.0-1.0)
[2021-08-09] MEDS: GENTAMICIN 120 MG/ ISO-OSM 100 ML PREMIX IV SCH (06:46)
[2021-08-09] MEDS ORDERED: ALPR0.5T PO (06:54)
[2021-08-09] MEDS ORDERED: CEL20 PO (06:55)
[2021-08-09] MEDS ORDERED: DIPH6.252 PO (06:57)
--- NOTE | 2021-08-09 07:24 | NUR ---
Closing note Pt is awake lying in bed with at bedside. No s/s of respiratory distress noted. PICC line is intact and patent with fluids running at ordered rate. Mejia catheter is intact and draining well. All needs met throughout shift. Will continue to monitor until endorsed to day shift
--- NOTE | 2021-08-09 08:03 | NUR ---
PATIENT IN BED, NO S/S OF DISTRESS, IV INTACT PATENT AND PICC LINE INTACT PATENT WITH BLOOD RETURN FROM BOTH PORTS, TRACH INTACT NO REDNESS OR DRAINAGE, VENT SETTINGS NOT CHANGED, O2 SAT >95% TOLERATING WELL, AT BEDSIDE, BED IN LOWEST LOCKED POSITION, CALL LIGHT WITHIN REACH, SAFETY MEASURES IN PLACE, WILL CONTINUE TO MONITOR.
--- NOTE | 2021-08-09 08:45 | NUR ---
CONSULTATION PAGED/CALLED NURSE CALLED FOR [facility] FOR PSYCH MEDS AT HOME
[2021-08-09] MEDS ORDERED: LORATADINE PO SCH (09:00)
--- NOTE | 2021-08-09 09:24 | NUR ---
received report of the ABG. will make respiratory aware as needed.
[2021-08-09] MEDS: CHOLECALCIFEROL (VITAMIN D3) 2,000 UNIT TABLET PO SCH (09:45)
[2021-08-09] MEDS: busPIRone HCL 5 MG TABLET GT SCH (09:46)
[2021-08-09] MEDS: LORATADINE 10 MG TABLET PO SCH (09:46)
[2021-08-09] MEDS: MULTIVITAMINS TAB 1 TABLET PO SCH (09:46)
[2021-08-09] MEDS: LOPERAMIDE HCL 2 MG CAPSULE PO SCH ×3 (09:46→21:03)
[2021-08-09] MEDS: RILUZOLE 50 MG TABLET PO SCH ×2 (09:49→21:02)
--- NOTE | 2021-08-09 10:58 | NUR ---
PER DR CARDENAS, PATIENT IS ON ATIVAN FOR ANXIETY AND THAT IS ALL THE PSYCH MEDICATION THIS PATIENT NEEDS. ASSESSED PATIENT AT BEDSIDE WITH MISSAEL AND HE COMPLETED HIS PSYCH CONSULT. ORDERED TO DISCONTINUE XANAX AND BUSPAR. ONLY CONTINUE ATIVAN ON AN NEEDED BASIS.
--- NOTE | 2021-08-09 11:23 | NUR ---
notified RT of the results of the ABG, stated will take a look at it and make adjustments if needed.
[2021-08-09 11:37] VITALS: BP_SYST 104
--- NOTE | 2021-08-09 12:00 | NUR ---
PATIENT CLEANED, HAVING LOOSE STOOL, PATIENT TAKING IMODIUM BID, WILL ASSESS EFFECTIVENESS.
--- NOTE | 2021-08-09 13:35 | NUR ---
RT NOTES Found FIO2 on 0.45, was changed by RT Ana Cristina when pt was desaturating.
[2021-08-09] MEDS: LORazepam 2 MG/ML VIAL IVP PRN ×2 (14:35→21:03)
--- NOTE | 2021-08-09 15:06 | NUR ---
Nutrition Update Eduardo Score 14 noted. Pt admitted for Pneumonia Diet: N/A BMI: 23.1 kg/m2 RD to follow per nutrition care standards.
[2021-08-09 15:37] VITALS: BP_SYST 111
[2021-08-09] MEDS: D5/0.45 NS 1,000 ML IV SCH (17:06)
--- NOTE | 2021-08-09 17:50 | NUR ---
PATIENT PRIMARY PHYSICIAN IS TO BE SWITCHED FROM DR VITLAE TO DR CALDERA, SPOKE WITH PATIENT AND PATIENT AND STATES WANTS TO HAVE SAME PHYSICIAN THEY HAVE BEEN WORKING WITH PRIOR TO DISCHARGE ON SUNDAY, SPOKE TO DR VITALE CONFIRMED THAT HE WILL HAVE DR CALDERA TAKE OVER CARE, CALLED DR CALDERA TO NOTIFY HIM THAT HE WILL BE TAKING OVER. IN ADDITION PATIENT WANTED DR TOLEDO INSTEAD OF DR ARNDT INFECTIOUS DISEASE DRZeus MADE THE CHANGE, DR TOLEDO AWARE.
--- NOTE | 2021-08-09 17:55 | NUR ---
CONSULTATION PAGED/CALLED Reason for Consultation: PNEUMONIA Person Who was Notified: FER Consulting Physician: TRE Airport Operations Coordinator Specialty: ID Ordering Physician: IAM
--- NOTE | 2021-08-09 18:58 | NUR ---
AT BEDSIDE, PATIENT HAS NO S/S OF DISTRESS, TOLERATING CARE, PICC LINE INTACT PATENT WITH BLOOD RETURN RUNNING D5 1/2NS AT 50, NO NEEDS AT THIS TIME, WILL ENDORSE TO PM TECHNICIAN.
--- NOTE | 2021-08-09 19:30 | NUR ---
Opening note Received report from day shift. Pt is awake lying in bed with at bedside. No s/s of respiratory distress noted. PICC line intact and patent. Mejia catheter is intact and draining. Bed is locked in lowest position with call light within reach. Will continue to monitor
[2021-08-09 20:00] VITALS: BP_SYST 107
[2021-08-09] MEDS: DIPHENHYDRAMINE HCL 25 MG CAPSULE PO SCH (21:03)
--- NOTE | 2021-08-10 00:15 | NUR ---
RN rounds Pt is sleeping. at bedside. No s/s of respiratory distress. Bed locked in lowest position with call light within reach. Will continue to monitor
[2021-08-10 00:38] VITALS: BP_SYST 98
[2021-08-10] MEDS: VANCOMYCIN HCL 1,250 MG in NS 250 ML IV SCH (03:36)
[2021-08-10] MEDS: IPRATROPIUM/ALBUTEROL SULFATE 3 ML AMPUL.NEB (DUONEB) INH SCH ×4 (04:58→20:37)
[2021-08-10] MEDS: CEFTAZIDIME 1 GM in D5W 50 ML IV SCH ×3 (06:05→21:06)
--- NOTE | 2021-08-10 06:37 | NUR ---
Closing note Pt is awake in bed, still at bedside. No s/s of respiratory distress. PICC line is intact and patent with fluids running at ordered rate. Mejia catheter is intact and draining well. Bed is locked in lowest position with call light within reach. All needs met throughout shift. Will continue to monitor until endorsed to day shift
[2021-08-10 08:00] VITALS: BP_SYST 105
--- NOTE | 2021-08-10 08:00 | NUR ---
patient in bed, no s/s of distress, picc line catheters both intact patent and blood return, iv fluids running, tolerating care, alert and oriented non verbal, at bedside, tolerating care, will continue to monitor, bed in lowest locked position, call light within reach.
--- NOTE | 2021-08-10 10:00 | NUR ---
CM note: discussed dcp with spouse, she requested [facility] transfer. She wants pt to get better before taking pt home.
[2021-08-10] MEDS: RILUZOLE 50 MG TABLET PO SCH ×2 (10:03→20:52)
[2021-08-10] MEDS: LOPERAMIDE HCL 2 MG CAPSULE PO SCH ×3 (10:05→20:52)
[2021-08-10] MEDS: LORazepam 2 MG/ML VIAL IVP PRN ×2 (10:06→20:54)
[2021-08-10] MEDS: MULTIVITAMINS TAB 1 TABLET PO SCH (10:06)
[2021-08-10] MEDS: LORATADINE 10 MG TABLET PO SCH (10:06)
[2021-08-10] MEDS: CHOLECALCIFEROL (VITAMIN D3) 2,000 UNIT TABLET PO SCH (10:06)
--- NOTE | 2021-08-10 12:00 | NUR ---
patient in bed, cleaned with housekeeping laundry worker already multiple times during the shift, at bedside, all questions answered, dr evans on case, communicating between and cristina to make care current and up to date.
[2021-08-10] MEDS ORDERED: CITALOPRAM HYDROBROMIDE 20 MG TABLET PO ONE (12:15)
[2021-08-10] MEDS: D5/0.45 NS 1,000 ML IV SCH (12:22)
[2021-08-10 12:54] VITALS: BP_SYST 114
[2021-08-10 14:22] LABS: HEMOGLOBIN 8.4 g/dL (14.0-18.0)
[2021-08-10 14:32] LABS: HEMATOCRIT 24.6 % (36-54); MEAN CORPUSCULAR HEMOGLOBIN 31 pg (27-31); MEAN CORPUSCULAR HGB CONC 34 % (32-36); MEAN CORPUSCULAR VOLUME 90 fL (79.0-98.0); PLATELET COUNT (AUTO) 190 K/uL (130-430); RED BLOOD CELL COUNT(AUTO) 2.72 MIL/uL (4.2-6.2); RED CELL DISTRIBUTION WIDTH 15.4 % (9.0-15.0)
[2021-08-10 14:46] LABS: CREATININE 0.65 mg/dL (0.55-1.30)
[2021-08-10 15:58] LABS: BAND % (MANUAL) 8 % (0-6); BASOPHILS % (MANUAL) 0 % (0-2); EOSINOPHILS % (MANUAL) 6 % (0-7); LYMPHOCYTES % (MANUAL) 8 % (20-46); MONOCYTES % (MANUAL) 8 % (0-11)
[2021-08-10 16:24] VITALS: BP_SYST 119
[2021-08-10 16:45] LABS: TOTAL IRON BIND. CAPACITY 217 ug/dL (250-450)
[2021-08-10] MEDS ORDERED: busPIRone HCL 5 MG TABLET GT ONE (16:45)
[2021-08-10] MEDS: NACL 0.9% 1,000 ML IV SCH (17:40)
--- NOTE | 2021-08-10 19:05 | NUR ---
patient in bed, no s/s of distress, picc line catheters both intact patent and blood return, iv fluids running, tolerating care, alert and oriented non verbal, at bedside, tolerating care, bed in lowest locked position, call light within reach, endorsed care to shift supervisor melting.
--- NOTE | 2021-08-10 19:54 | NUR ---
Received bedside report. pt in bed resting. rr even and unlabored. pt has trach and vented. pt med surg. call light within reach. bed locked in lowest position. family at bedside. will continue to monitor.
[2021-08-10] MEDS: LACTOBACILLUS RHAMNOSUS GG 1 CAP CAPSULE GT SCH (20:52)
[2021-08-10] MEDS: busPIRone HCL 5 MG TABLET GT SCH (20:53)
[2021-08-10] MEDS: ACETAMINOPHEN 500 MG TABLET PO PRN (20:53)
[2021-08-10] MEDS: DIPHENHYDRAMINE HCL 25 MG CAPSULE PO SCH (20:53)
[2021-08-10 20:54] VITALS: BP_SYST 108
[2021-08-11 00:33] VITALS: BP_SYST 153
[2021-08-11] MEDS: IPRATROPIUM/ALBUTEROL SULFATE 3 ML AMPUL.NEB (DUONEB) INH SCH ×4 (01:42→20:26)
[2021-08-11] MEDS: CEFTAZIDIME 1 GM in D5W 50 ML IV SCH ×3 (05:45→21:35)
[2021-08-11 06:45] LABS: BASOPHILS # (AUTO) 0.1 K/uL (0.0-0.2); BASOPHILS % (AUTO) 0.9 % (0.0-2.0); EOSINOPHILS # (AUTO) 0.5 K/uL (0.0-0.4); EOSINOPHILS % (AUTO) 5.3 % (0.0-4.0); HEMATOCRIT 26.1 % (36-54); HEMOGLOBIN 8.8 g/dL (14.0-18.0); LYMPHOCYTES # (AUTO) 0.7 K/uL (1.0-5.5); LYMPHOCYTES % (AUTO) 6.6 % (20.5-51.5); MEAN CORPUSCULAR HEMOGLOBIN 31 pg (27-31); MEAN CORPUSCULAR HGB CONC 34 % (32-36); MEAN CORPUSCULAR VOLUME 92 fL (79.0-98.0); MONOCYTES % (AUTO) 10.6 % (1.7-9.3); NEUTROPHILS # (AUTO) 7.5 K/uL (1.8-7.7); NEUTROPHILS % (AUTO) 76.6 % (40.0-70.0); PLATELET COUNT (AUTO) 188 K/uL (130-430); RED BLOOD CELL COUNT(AUTO) 2.85 MIL/uL (4.2-6.2); RED CELL DISTRIBUTION WIDTH 15.4 % (9.0-15.0); WHITE BLOOD COUNT (AUTO) 9.8 K/uL (4.8-10.8)
[2021-08-11 07:37] LABS: ALBUMIN 2.6 g/dL (3.4-4.8); CALCIUM 9.8 mg/dL (8.4-11.0); CREATININE 0.69 mg/dL (0.55-1.30); PHOSPHORUS 3.8 mg/dL (2.7-4.5); TOTAL BILIRUBIN 0.6 mg/dL (0.0-1.0)
--- NOTE | 2021-08-11 07:42 | NUR ---
pt had 2 loose bm during shift. suction provided through out shift . care endorsed to day shift rn.
[2021-08-11] MEDS: RILUZOLE 50 MG TABLET PO SCH ×2 (09:49→22:49)
[2021-08-11] MEDS: VANCOMYCIN HCL 1,000 MG in NS 250 ML IV SCH ×2 (09:50→22:49)
[2021-08-11] MEDS: CITALOPRAM HYDROBROMIDE 20 MG TABLET PO SCH (09:57)
[2021-08-11] MEDS: LOPERAMIDE HCL 2 MG CAPSULE PO SCH (09:57)
[2021-08-11] MEDS: LACTOBACILLUS RHAMNOSUS GG 1 CAP CAPSULE GT SCH ×2 (09:58→21:35)
[2021-08-11] MEDS: MULTIVITS,CA,MINERALS/IRON/FA 1 TABLET GT SCH (09:58)
[2021-08-11] MEDS: LORATADINE 10 MG TABLET PO SCH (09:58)
[2021-08-11] MEDS: busPIRone HCL 5 MG TABLET GT SCH ×3 (09:58→21:35)
[2021-08-11] MEDS: CHOLECALCIFEROL (VITAMIN D3) 2,000 UNIT TABLET PO SCH (09:58)
[2021-08-11 10:06] VITALS: BP_SYST 129
[2021-08-11] MEDS ORDERED: FAMOTIDINE 20 MG TABLET GT ONE (11:15)
[2021-08-11] MEDS ORDERED: MENTHOL/ZINC OXIDE 113 GM OINT. TP PRN (11:30)
[2021-08-11] MEDS ORDERED: LOPERAMIDE HCL 2 MG CAPSULE GT ONE (11:45)
[2021-08-11 12:15] VITALS: BP_SYST 127
[2021-08-11] MEDS: ALPRAZolam 0.25 MG TABLET GT PRN (12:23)
--- NOTE | 2021-08-11 12:39 | NUR ---
CM note: LT[facility] eval: sent the referral to [facility].
--- NOTE | 2021-08-11 16:00 | NUR ---
PEG TUBE DRESSING DONE TODAY. MADE COMFORTABLE.
[2021-08-11 16:35] VITALS: BP_SYST 124
[2021-08-11] MEDS: NACL 0.9% 1,000 ML IV SCH (17:36)
[2021-08-11] MEDS: SOD FERRIC GLUC COMPLEX/SUC 125 MG in NS 100 ML IV SCH (17:41)
--- NOTE | 2021-08-11 18:54 | NUR ---
DUE MEDS IV ANTIBIOTIC GIVEN.
--- NOTE | 2021-08-11 19:00 | NUR ---
OPENING NOTES PATIENT RESTING IN BED, HOB ELEVATED, BED ALARM ON, CALL LIGHT WITHIN REACH. MAZARIEGOS IS FREE OF KINK AND LOOPS, NOT TOUCHING THE GROUND. PATIENT IS ON VENTILATOR. ENDORSED BY AM SHIFT THAT FAMILY IS AT BEDSIDE. WILL CONTINUE TO MONITOR.
[2021-08-11 20:00] VITALS: BP_SYST 138
[2021-08-11] MEDS: FAMOTIDINE 20 MG TABLET GT SCH (21:35)
[2021-08-11] MEDS: DIPHENHYDRAMINE HCL 25 MG CAPSULE PO SCH (21:36)
[2021-08-11] MEDS: LORazepam 2 MG/ML VIAL IVP PRN (21:48)
[2021-08-12] VITALS (8 sets, daily range): BP systolic 105–147
--- NOTE | 2021-08-12 01:30 | NUR ---
IV PUMP ALARM GOING OFF. FIXED IV PUMP ISSUE. PATIENT IS RESTING COMFORTABLY IN BED. PATIENT DENIES ALL PAIN OR DISCOMFORT. WILL CONTINUE TO MONITOR.
[2021-08-12] MEDS: IPRATROPIUM/ALBUTEROL SULFATE 3 ML AMPUL.NEB (DUONEB) INH SCH ×4 (01:35→20:00)
[2021-08-12] MEDS: CEFTAZIDIME 1 GM in D5W 50 ML IV SCH (05:33)
--- NOTE | 2021-08-12 05:58 | NUR ---
PROVIDED PERINEAL CARE. CHANGED SACRAL FOAM DRESSING. PATIENT TOLERATED WELL. WILL CONTINUE TO MONITOR.
--- NOTE | 2021-08-12 06:42 | NUR ---
CLOSING NOTES PATIENT RESTING IN BED, HOB ELEVATED, BED ALARM ON, CALL LIGHT WITHIN REACH. MAZARIEGOS IS FREE OF KINK AND LOOPS, NOT TOUCHING THE GROUND. PATIENT IS ON VENTILATOR. FAMILY IS AT BEDSIDE. PATIENT MONITORED FOR FEVER, NO FEVER NOTED. ALL NEEDS MET THROUGHOUT SHIFT. WILL ENDORSE TO ONCOMING SHIFT.
[2021-08-12 07:11] LABS: BASOPHILS # (AUTO) 0.1 K/uL (0.0-0.2); BASOPHILS % (AUTO) 0.7 % (0.0-2.0); EOSINOPHILS # (AUTO) 0.5 K/uL (0.0-0.4); EOSINOPHILS % (AUTO) 5.7 % (0.0-4.0); HEMATOCRIT 26.4 % (36-54); HEMOGLOBIN 8.7 g/dL (14.0-18.0); LYMPHOCYTES # (AUTO) 0.6 K/uL (1.0-5.5); LYMPHOCYTES % (AUTO) 6.3 % (20.5-51.5); MEAN CORPUSCULAR HEMOGLOBIN 30 pg (27-31); MEAN CORPUSCULAR HGB CONC 33 % (32-36); MEAN CORPUSCULAR VOLUME 91 fL (79.0-98.0); MONOCYTES # (AUTO) 0.8 K/uL (0.0-1.0); MONOCYTES % (AUTO) 9.4 % (1.7-9.3); NEUTROPHILS % (AUTO) 77.9 % (40.0-70.0); PLATELET COUNT (AUTO) 201 K/uL (130-430); RED CELL DISTRIBUTION WIDTH 15.4 % (9.0-15.0); RETICULOCYTE COUNT 2.3 % (0.5-1.5)
--- NOTE | 2021-08-12 07:44 | NUR ---
Initial Note Patient sitting up in bed, awake and oriented x 4 but nonverbal. Communicates with head nodding/shaking and white board. at bedside. RT at bedside giving breathing treatment. Patient has tracheostomy to ventilator saturating 100%. No pain or distress. Mjeia catheter patent and draining to gravity without kinks. G-tube in place, surrounding skin intact. Bed in lowest position, call light in reach.
[2021-08-12 07:47] LABS: CALCIUM 9.6 mg/dL (8.4-11.0); CREATININE 0.68 mg/dL (0.55-1.30); POTASSIUM 4.2 mmol/L (3.5-5.1)
[2021-08-12 08:06] LABS: FOLATE (FOLIC ACID) >20.0 ng/mL (>3.0)
--- NOTE | 2021-08-12 08:17 | NUR ---
PHYSICAL THERAPY CO-SIGN The Physical Therapy Progress Notes documented by Food Processor have been reviewed. Reviewed/Co-Signed by: Wiley Castro Documentation Done by: TAIWO BLANKENSHIP PTA Addendum: 08/12/21 at 0818 by Wiley Castro PT Amended: Links added.
--- NOTE | 2021-08-12 08:58 | NUR ---
DISCHARGE PLANNING Called & spoke with Alba, ph [phone], states was unable to see facilities yest, going to [facility] today.
[2021-08-12] MEDS: RILUZOLE 50 MG TABLET PO SCH ×2 (09:21→20:52)
[2021-08-12] MEDS: LORATADINE 10 MG TABLET PO SCH (09:21)
[2021-08-12] MEDS: ACETAMINOPHEN 500 MG TABLET PO PRN ×2 (09:22→20:51)
[2021-08-12] MEDS: CHOLECALCIFEROL (VITAMIN D3) 2,000 UNIT TABLET PO SCH (09:23)
[2021-08-12] MEDS: busPIRone HCL 5 MG TABLET GT SCH ×3 (09:23→20:52)
[2021-08-12] MEDS: MULTIVITS,CA,MINERALS/IRON/FA 1 TABLET GT SCH (09:23)
[2021-08-12] MEDS: LACTOBACILLUS RHAMNOSUS GG 1 CAP CAPSULE GT SCH ×2 (09:23→20:51)
[2021-08-12] MEDS: FAMOTIDINE 20 MG TABLET GT SCH ×2 (09:23→20:52)
[2021-08-12] MEDS: CITALOPRAM HYDROBROMIDE 20 MG TABLET PO SCH (09:23)
[2021-08-12] MEDS: VANCOMYCIN HCL 1,000 MG in NS 250 ML IV SCH (09:24)
[2021-08-12] MEDS: ALPRAZolam 0.25 MG TABLET GT PRN (11:40)
[2021-08-12] MEDS: NYSTATIN 15 GM TOPICAL POWDER TP SCH ×2 (11:46→20:55)
[2021-08-12] MEDS: CIPROFLOXACIN LACT 400 MG/D5W 200 ML IV SCH ×2 (11:46→20:51)
--- NOTE | 2021-08-12 12:00 | NUR ---
Notes Patient soiled x 1 BM. Changed and provided perineal care with assist. Dressing on sacrum changed. Repositioned patient for comfort. Bed locked in lowest position with alarm on. Call light placed within reach, encouraged to call.
[2021-08-12] MEDS: SOD FERRIC GLUC COMPLEX/SUC 125 MG in NS 100 ML IV SCH (13:32)
[2021-08-12] MEDS: NACL 0.9% 1,000 ML IV SCH (13:38)
--- NOTE | 2021-08-12 19:00 | NUR ---
OPENING NOTES PATIENT RESTING IN BED, HOB ELEVATED, BED ALARM ON, CALL LIGHT WITHIN REACH. MAZARIEGOS IS FREE OF KINK AND LOOPS, NOT TOUCHING THE GROUND. PATIENT IS ON VENTILATOR. ENDORSED BY AM SHIFT THAT FAMILY HAS NOTICED TRACE AMOUNT OF BLOOD ON PENIS. WILL CONTINUE TO MONITOR.
--- NOTE | 2021-08-12 19:05 | NUR ---
Closing Note Patient watching TV with Alba at bedside. All needs met. No pain or distress. Bed locked in lowest position with alarm on and call light placed in reach. Will endorse to night nurse.
--- NOTE | 2021-08-12 20:00 | NUR ---
PATIENT HAD BOWEL MOVEMENT. PROVIDED PERINEAL CARE AND REPOSITIONING. OBSERVED NO BLOOD IN MAZARIEGOS CATHETER, EMPTIED OUT 1000ML OF URINE. WILL CONTINUE TO MONITOR.
[2021-08-12] MEDS: LOPERAMIDE HCL 2 MG CAPSULE GT PRN (20:51)
[2021-08-12] MEDS: DIPHENHYDRAMINE HCL 25 MG CAPSULE PO SCH (20:52)
[2021-08-12] MEDS: LORazepam 2 MG/ML VIAL IVP PRN (20:52)
[2021-08-13] VITALS: BP_SYST 116
[2021-08-13] MEDS: LOPERAMIDE HCL 2 MG CAPSULE GT PRN ×4 (06:01→21:14)
[2021-08-13] MEDS: IPRATROPIUM/ALBUTEROL SULFATE 3 ML AMPUL.NEB (DUONEB) INH SCH ×3 (06:45→20:21)
--- NOTE | 2021-08-13 06:50 | NUR ---
CLOSING NOTES PATIENT RESTING IN BED, HOB ELEVATED, BED ALARM ON, CALL LIGHT WITHIN REACH. MAZARIEGOS IS FREE OF KINK AND LOOPS, NOT TOUCHING THE GROUND. PATIENT IS ON VENTILATOR. WILL ENDORSE TO ONCOMING SHIFT THAT FAMILY WANTS PATIENT TO BE DISCHARGED TO [facility] FOR CONTINUATION OF CARE. ALL NEEDS MET THROUGHOUT SHIFT.
--- NOTE | 2021-08-13 07:30 | NUR ---
RN OPENING NOTE REPORT WAS ENDORSED BY NIGHT NURSE. PATIENT IS AWAKE AND ALERT NO SIGNS OF ANY DISTRESS, BREATHING IS EQUAL AND NON LABORED.PATIENT EDUCATED ALLERGY PHYSICIAN LIGHT FOR ASSISTANCE. CALL LIGHT IS WITH HIM. SPOUSE IS AT BEDSIDE. PATIENT HAS NO OTHER NEEDS AT THIS TIME.
[2021-08-13 07:49] VITALS: BP_SYST 134
--- NOTE | 2021-08-13 09:19 | NUR ---
Case mgt: I rec'd voice message from Alba indicating she wants to go to [facility] and NOT [facility] or [facility] ph#[phone]--
--- NOTE | 2021-08-13 09:45 | NUR ---
Case mgt: I s/w Mikki at [place] [phone] and explained pt's Alba toured local [place] facilities and she wants [facility]--I'm faxing updated MD progress notes, med list, labs to Mikki at fax#[phone]. MICHELLE RN
[2021-08-13] MEDS: RILUZOLE 50 MG TABLET PO SCH ×2 (10:08→21:14)
[2021-08-13] MEDS: LORATADINE 10 MG TABLET PO SCH (10:09)
[2021-08-13] MEDS: CIPROFLOXACIN LACT 400 MG/D5W 200 ML IV SCH ×2 (10:09→21:11)
[2021-08-13] MEDS: busPIRone HCL 5 MG TABLET GT SCH ×3 (10:09→21:14)
[2021-08-13] MEDS: LACTOBACILLUS RHAMNOSUS GG 1 CAP CAPSULE GT SCH ×2 (10:09→21:14)
[2021-08-13] MEDS: CHOLECALCIFEROL (VITAMIN D3) 2,000 UNIT TABLET PO SCH (10:09)
[2021-08-13] MEDS: FAMOTIDINE 20 MG TABLET GT SCH ×2 (10:10→21:14)
[2021-08-13] MEDS: NYSTATIN 15 GM TOPICAL POWDER TP SCH ×2 (10:10→21:15)
[2021-08-13] MEDS: MULTIVITS,CA,MINERALS/IRON/FA 1 TABLET GT SCH (10:10)
[2021-08-13] MEDS: CITALOPRAM HYDROBROMIDE 20 MG TABLET PO SCH (10:10)
--- NOTE | 2021-08-13 10:24 | NUR ---
MEDICATION PATIENTS SCHEDULED MEDICATION GIVEN PER ORDER. PATIENT IS AWAKE AND ALERT NO SIGNS OF ANY DISTRESS, BREATHING IS EQUAL AND NON LABORED. PATIENT HAS ALL SAFETY PRECAUTIONS IN PLACE. SPOUSE IS AT BEDSIDE. PATIENT HAS NO COMPLAINTS AT THIS TIME.
[2021-08-13] MEDS: NACL 0.9% 1,000 ML IV SCH (13:19)
[2021-08-13] MEDS: SOD FERRIC GLUC COMPLEX/SUC 125 MG in NS 100 ML IV SCH (13:20)
--- NOTE | 2021-08-13 13:22 | NUR ---
IV FLUID/ MEDICATION PATIENTS SCHEDULED MEDICATION GIVEN PER ORDER. PATIENT IS AWAKE AND ALERT SITTING IN BED. NO COMPLAINTS AT THIS TIME. PATIENT HAS FAMILY AT BEDSIDE. PATIENT HAS ALL SAFETY PRECAUTIONS IN PLACE. PATIENT IS FEELING ANXIOUS.
[2021-08-13] MEDS: LORazepam 2 MG/ML VIAL IVP PRN ×2 (13:31→20:14)
--- NOTE | 2021-08-13 14:57 | NUR ---
MEDICATION/ORAL CARE PATIENTS MEDICATION GIVEN PER ORDER. PATIENT IS AWAKE AND ALERT, ORAL CARE WAS PREFORMED PER ORDER. PATIENT SUCTIONED REQUESTED. PATIENT HAS FAMILY AT BED SIDE. PATIENT EDUCATED SALES HUNTER LIGHT, FOR ASSISTANCE. CALL LIGHT IS WITH PATIENT. PATIENT SHOWS NO SIGNS OF ANY DISTRESS, BREATHING IS EQUAL AND NON LABORED. NO OTHER NEEDS AT THIS TIME.
[2021-08-13 15:28] VITALS: BP_SYST 148
[2021-08-13] MEDS: ACETAMINOPHEN 500 MG TABLET PO PRN (16:49)
--- NOTE | 2021-08-13 16:52 | NUR ---
PAIN MEDICATION PATIENT COMPLAINS OF PAIN, MEDICATED PER ORDER. PATIENT HAS FAMILY AT BED SIDE. PATIENT EDUCATED DISTRICT SUPERINTENDENT LIGHT, CALL LIGHT IS WITH HIM. PATIENT HAS NO OTHER NEEDS AT THIS TIME.
--- NOTE | 2021-08-13 18:40 | NUR ---
RN CLOSING NOTE PATIENT IS AWAKE AND ALERT SITTING UP IN BED NO SIGNS OF ANY DISTRESS, BREATHING IS EQUAL AND NON LABORED. PATIENT HAS NO COMPLAINTS AT THIS TIME. FAMILY IS AT BED SIDE. PATIENT HAS ALL SAFETY PRECAUTIONS IN PLACE. NO OTHER NEEDS AT THIS TIME.
[2021-08-13 20:00] VITALS: BP_SYST 109
[2021-08-13] MEDS: DIPHENHYDRAMINE HCL 25 MG CAPSULE PO SCH (21:14)
--- NOTE | 2021-08-13 22:00 | NUR ---
ROUNDING NOTES Patient resting in bed - no s/s pain or distress noted. Respirations even and unlabored - head of bed elevated trach vent secured. IV site patent - no s/s redness, infection, or infiltration. Bed locked and in lowest position. Call light within reach - bed alarm on.
[2021-08-14] VITALS: BP_SYST 114
[2021-08-14] MEDS: IPRATROPIUM/ALBUTEROL SULFATE 3 ML AMPUL.NEB (DUONEB) INH SCH ×4 (03:43→20:46)
[2021-08-14 06:43] LABS: BASOPHILS # (AUTO) 0.1 K/uL (0.0-0.2); EOSINOPHILS # (AUTO) 0.4 K/uL (0.0-0.4); EOSINOPHILS % (AUTO) 3.8 % (0.0-4.0); HEMATOCRIT 27.8 % (36-54); HEMOGLOBIN 9.2 g/dL (14.0-18.0); LYMPHOCYTES # (AUTO) 0.7 K/uL (1.0-5.5); LYMPHOCYTES % (AUTO) 6.2 % (20.5-51.5); MEAN CORPUSCULAR HEMOGLOBIN 30 pg (27-31); MEAN CORPUSCULAR HGB CONC 33 % (32-36); MEAN CORPUSCULAR VOLUME 91 fL (79.0-98.0); MONOCYTES % (AUTO) 9.3 % (1.7-9.3); NEUTROPHILS # (AUTO) 8.4 K/uL (1.8-7.7); NEUTROPHILS % (AUTO) 79.7 % (40.0-70.0); PLATELET COUNT (AUTO) 210 K/uL (130-430); RED BLOOD CELL COUNT(AUTO) 3.06 MIL/uL (4.2-6.2); WHITE BLOOD COUNT (AUTO) 10.6 K/uL (4.8-10.8)
[2021-08-14 07:01] LABS: CALCIUM 9.5 mg/dL (8.4-11.0); CREATININE 0.72 mg/dL (0.55-1.30); PHOSPHORUS 3.8 mg/dL (2.7-4.5); POTASSIUM 4.2 mmol/L (3.5-5.1)
[2021-08-14 08:00] VITALS: BP_SYST 92
[2021-08-14] MEDS: RILUZOLE 50 MG TABLET PO SCH ×2 (09:00→20:20)
[2021-08-14] MEDS: NYSTATIN 15 GM TOPICAL POWDER TP SCH ×2 (09:00→20:20)
--- NOTE | 2021-08-14 09:30 | NUR ---
CM note: per Mikki, the pt is accepted at [facility].Mikki will call back with bed assignment. Dr Rice aware and ordered to discharge when bed available. -- Larie, spouse aware.
[2021-08-14] MEDS: LORATADINE 10 MG TABLET PO SCH (09:40)
[2021-08-14] MEDS: CHOLECALCIFEROL (VITAMIN D3) 2,000 UNIT TABLET PO SCH (09:40)
[2021-08-14] MEDS: FAMOTIDINE 20 MG TABLET GT SCH ×2 (09:40→20:19)
[2021-08-14] MEDS: LACTOBACILLUS RHAMNOSUS GG 1 CAP CAPSULE GT SCH ×2 (09:40→20:19)
[2021-08-14] MEDS: CITALOPRAM HYDROBROMIDE 20 MG TABLET PO SCH (09:40)
[2021-08-14] MEDS: busPIRone HCL 5 MG TABLET GT SCH ×3 (09:40→20:19)
[2021-08-14] MEDS: CIPROFLOXACIN LACT 400 MG/D5W 200 ML IV SCH ×2 (09:52→20:16)
[2021-08-14] MEDS: MULTIVITS,CA,MINERALS/IRON/FA 1 TABLET GT SCH (09:52)
--- NOTE | 2021-08-14 10:20 | NUR ---
Dietitian Recommendations * Recommend continuing Nutren 1.5 bolus feeds 6x/day, Hood BID, and 60 ml water flush before and after bolus feeds via GT (as per most previous admission 07/28 Provides: 2410 kcal/day, 107 gm protein/day, and 1846 ml free water/day Meets: 89% of upper end of estimated caloric needs and 92% of lower end of estimated protein needs LP, RD Please refer to Nutrition Assessment for details. Addendum: 08/14/21 at [address] Amended: Links added.
[2021-08-14 12:00] VITALS: BP_SYST 123
[2021-08-14] MEDS: LORazepam 2 MG/ML VIAL IVP PRN (12:24)
[2021-08-14] MEDS: ACETAMINOPHEN 500 MG TABLET PO PRN ×2 (12:24→20:20)
[2021-08-14] MEDS: LOPERAMIDE HCL 2 MG CAPSULE GT PRN ×2 (13:10→20:19)
[2021-08-14] MEDS: SOD FERRIC GLUC COMPLEX/SUC 125 MG in NS 100 ML IV SCH (13:35)
[2021-08-14 16:02] VITALS: BP_SYST 94
[2021-08-14] MEDS: NACL 0.9% 1,000 ML IV SCH (18:49)
[2021-08-14 20:00] VITALS: BP_SYST 128
[2021-08-14] MEDS: DIPHENHYDRAMINE HCL 25 MG CAPSULE PO SCH (20:19)
[2021-08-15] VITALS (7 sets, daily range): BP systolic 109–121
[2021-08-15] MEDS: IPRATROPIUM/ALBUTEROL SULFATE 3 ML AMPUL.NEB (DUONEB) INH SCH ×4 (04:10→21:17)
--- NOTE | 2021-08-15 08:00 | NUR ---
Initial Note Patient lying in bed awake with HOB 45 degrees. Alert and oriented x 4. Nonverbal. Able to communicate with head nods, hand signals, and whiteboard. No pain or distress noted. Tracheostomy to mechanical ventilator, O2 saturation 99%. Mejia catheter in place, patent and draining to gravity. G-tube present, surrounding skin intact. Bed placed in lowest position with alarm on. Call light within patient's reach.
--- NOTE | 2021-08-15 08:44 | NUR ---
PHYSICAL THERAPY CO-SIGN The Physical Therapy Progress Notes documented by Quality Assurance Supervisor Final have been reviewed. Reviewed/Co-Signed by: Wiley Castro Documentation Done by: TAIWO BLANKENSHIP PTA Addendum: 08/15/21 at 0845 by Wiley Castro PT Amended: Links added.
[2021-08-15] MEDS: CIPROFLOXACIN LACT 400 MG/D5W 200 ML IV SCH ×2 (09:32→20:29)
[2021-08-15] MEDS: busPIRone HCL 5 MG TABLET GT SCH ×3 (09:32→20:29)
[2021-08-15] MEDS: FAMOTIDINE 20 MG TABLET GT SCH ×2 (09:32→20:29)
[2021-08-15] MEDS: CITALOPRAM HYDROBROMIDE 20 MG TABLET PO SCH (09:32)
[2021-08-15] MEDS: LOPERAMIDE HCL 2 MG CAPSULE GT PRN (09:32)
[2021-08-15] MEDS: LORATADINE 10 MG TABLET PO SCH (09:32)
[2021-08-15] MEDS: MULTIVITS,CA,MINERALS/IRON/FA 1 TABLET GT SCH (09:33)
[2021-08-15] MEDS: RILUZOLE 50 MG TABLET PO SCH ×2 (09:33→20:30)
[2021-08-15] MEDS: CHOLECALCIFEROL (VITAMIN D3) 2,000 UNIT TABLET PO SCH (09:33)
[2021-08-15] MEDS: LACTOBACILLUS RHAMNOSUS GG 1 CAP CAPSULE GT SCH ×2 (09:33→20:29)
[2021-08-15] MEDS: NYSTATIN 15 GM TOPICAL POWDER TP SCH ×2 (09:33→21:00)
[2021-08-15] MEDS: SOD FERRIC GLUC COMPLEX/SUC 125 MG in NS 100 ML IV SCH (13:59)
[2021-08-15] MEDS: LORazepam 2 MG/ML VIAL IVP PRN ×2 (15:16→21:54)
--- NOTE | 2021-08-15 16:07 | NUR ---
INGRID note: From Mikki : given bed assigned to room 507A , RN to report # [phone]. I notified Mikayla, who agreed with the transfer to [facility] this pm. address: [address] [place] [address] [place] [address]. Addendum: 08/15/21 at 1620 by Indigo Rdz RN >> Per RAFAELA Sheppard booked the CCT/RT with [facility] , Francia, dispatcher gave next available shrimp picker ETA between 1930 to 1999. -- RAFAELA Lee and spouse/Mikayla aware. Addendum: 08/16/21 at 1405 by Indigo Rdz RN Disposition: 02
[2021-08-15] MEDS: NACL 0.9% 1,000 ML IV SCH (16:45)
[2021-08-15] MEDS ORDERED: [UNRECOGNIZED DRUG - OTHER] IVPB (18:11)
[2021-08-15] MEDS ORDERED: [UNRECOGNIZED DRUG - CODE] IVPB (18:12)
--- NOTE | 2021-08-15 19:04 | NUR ---
Closing Note Patient lying in bed with HOB elevated 45 degrees. No signs or symptoms of distress, patient denies pain. Patient will transfer to [facility] [id number]. Safety precautions in place. Call light in reach, will endorse to night nurse.
--- NOTE | 2021-08-15 19:15 | NUR ---
OPENING NOTE REPORT RECEIVED FROM DAYSMIFT NURSE. PATIENT RECEIVED LYING IN BED, NO S/S OF ACUTE DISTRESS NOTED. BREATHING EVEN AND UNLABORED. HOB RAISED, TRACH TO VENT ATTACHED AND OPERATING, PATIENT TOLERATING WELL, SPO2 AT 99. IVF INFUSING WELL, IV SITE PATENT, NO SIGNS OF INFILTRATION OR INFECTION NOTED. MAZARIEGOS ATTACHED, SECURED, AND DRAINING BY GRAVITY. CALL LIGHT WITH PATIENT. BED ALARM ON. BED IS LOCKED AND AT LOWEST POSITION. WILL CONTINUE TO MONITOR.
--- NOTE | 2021-08-15 20:19 | NUR ---
Follow up call made to [facility], spoke to Bianka, she said the crew is coming late, the new ETA is [phone]
[2021-08-15] MEDS: DIPHENHYDRAMINE HCL 25 MG CAPSULE PO SCH (20:29)
--- NOTE | 2021-08-15 21:30 | NUR ---
Called [facility] again, spoke to Mic, she said the crew is 10 minutes away from the hospital.
--- NOTE | 2021-08-15 22:21 | NUR ---
DISCHARGE REPORT GIVEN TO [facility] EMT, PATIENT IN BED, AWAKE, ALERT, NO S/S OF ACUTE DISTRESS NOTED. BREATHING EVEN AND UNLABORED. TRACH TO VENT ATTACHED AND OPERATING, PATIENT TOLERATING WELL. IV SITES PATENT, NO SIGNS OF INFILTRATION OR INFECTION NOTED. MAZARIEGOS ATTACHED, SECURED, AND DRAINING BY GRAVITY. GTUBE ATTACHED, CLAMPED. SKIN WARM AND DRY TO TOUCH. ALL NEEDS MET. PATIENT ESCORTED OUT OF UNIT VIA GURNEY AT THIS TIME.
--- NOTE | 2021-08-16 08:19 | NUR ---
PHYSICAL THERAPY CO-SIGN The Physical Therapy Progress Notes documented by Electric Range Assembler have been reviewed. Reviewed/Co-Signed by: Wiley Castro Documentation Done by: TAIWO BLANKENSHIP PTA Addendum: 08/16/21 at 0820 by Wiley Castro PT Amended: Links added.
== END 2021-08-15 22:35 | DRG 870 ==
LOC: SED 22:17 → SMU 08-08 01:06 → STU 08-11 11:30
PROVIDERS: ADMIT Internal Medicine; ATTEND Internal Medicine
PROC: 5A1955Z Respiratory Ventilation, Greater than 96 Consecutive Hours (ICD-10-PCS; principal; 2021-08-07)
PROC: 02HV33Z Insertion of Infusion Device into Superior Vena Cava, Percutaneous Approach (ICD-10-PCS; 2021-08-07)
DX: A41.9 Sepsis, unspecified organism (principal); E43 Unspecified severe protein-calorie malnutrition; J15.1 Pneumonia due to Pseudomonas; G82.50 Quadriplegia, unspecified; I46.9 Cardiac arrest, cause unspecified; J96.20 Acute and chronic respiratory failure, unspecified whether with hypoxia or hypercapnia; E87.2 Acidosis; G12.21 Amyotrophic lateral sclerosis; Z16.24 Resistance to multiple antibiotics; Z16.19 Resistance to other specified beta lactam antibiotics; N39.0 Urinary tract infection, site not specified; Z99.11 Dependence on respirator [ventilator] status; Z20.822 Contact with and (suspected) exposure to COVID-19; R13.10 Dysphagia, unspecified; K59.00 Constipation, unspecified; R19.7 Diarrhea, unspecified; K58.0 Irritable bowel syndrome with diarrhea; F41.9 Anxiety disorder, unspecified; Z79.899 Other long term (current) drug therapy; Z88.5 Allergy status to narcotic agent; Z79.1 Long term (current) use of non-steroidal anti-inflammatories (NSAID); Z93.1 Gastrostomy status; Z87.440 Personal history of urinary (tract) infections; Z87.01 Personal history of pneumonia (recurrent)
CPT/HCPCS: 36415; 36600; 71045; 80048; 80053; 80202; 81000; 82607; 82746; 82803-TC; 83540; 83550; 83605; 83735; 83880; 84100; 84484; 85007; 85025; 85027; 85044; 87040-TC; 87070-TC; 87081; 87086; 87205-TC; 93005; 94002; 94003; 94640; 94760; 96361; 96365; 96375; 97110-GP; 97161-GP; 99285; G0378; J0456; J0696; J0713; J0744; J1580; J1885; J2060; J2916; J3370; J7050; J7060; Q0163